=== PATIENT | female | born 1975 | race African-American/Black ===

== ENCOUNTER 2016-10-05 12:29 | Inpatient (IN) | payer BC ==
[~2016-10-05] VITALS: Ht 165.1 cm; Wt 73.4 kg
[~2016-10-05 12:29] MED LIST: AMOXICILLIN 8751 TAB PO; BENADRYL25 M2 PO; CORTIFOAM10% RC; DIFLUCAN150 MG PO; ENTOCORT EC3 MG PO; FLAGYL500 MG PO; HUMIRA40 MG/0.8 MR; LEVAQUIN 5500 MG/TA1 PO; LEVOTHYROXIN0.075 MG PO; MOTRIN 200200 MG/TAB PO; NORCO 325 MG-51 TAB PO; PHENERGAN 25 TA25 MG PO; PHENERGAN25 MG RC; PREDNISONE10 MG PO; PREDNISONE20 MG; PREDNISONE20 MG PO; ROCEPHIN1 GM/50 ML IV; ULTRAM 50MG TAB50 MG PO; VALIUM 5MG T5 MG/TAB PO; ZOFRAN 4MG T4 MG/TAB PO; ZOFRAN ODT4 MG PO
[2016-10-05 13:25] LABS: BASO # 0.1 (0.0-0.2); BASO % 0.7 % (0.0-2.0); EOS # 0.1 (0.0-0.7); EOS % 0.3 % (0-4.0); GRAN # 11.2 (1.4-6.5); GRAN % 75.1 % (42.2-75.2); LYMPH # 2.4 (1.2-3.4); LYMPH % 15.9 % (20.0-51.0); MEAN CELL VOLUME 75 fl (80.0-100.0); MEAN CORPUSCULAR HGB CONC 33 g/dl (33.0-37.0); MONO % 6.8 % (1.7-9.3); PLATELET COUNT 921 K/mm3 (130-400); RED BLOOD COUNT 4.87 M/mm3 (4.10-5.30); REDCELL DISTRIBUTION WIDTH-CV 19.5 % (11.5-14.5); WHITE BLOOD COUNT 14.9 K/mm3 (4.8-10.8)
[2016-10-05 13:26] LABS: HEMATOCRIT 36.5 % (37.0-47.0); HEMOGLOBIN 11.9 g/dl (12.5-16.0); MEAN CORPUSCULAR HEMOGLOBIN 24 pg (27.0-31.0)
[2016-10-05 13:28] LABS: GRANULAR CAST >12 /lpf; PH 5 (5-8); URINE APPEARANCE Cloudy; URINE BACTERIA Rare /hpf; URINE BILIRUBIN Negative (NEGATIVE); URINE BLOOD 3+ (NEGATIVE); URINE COLOR Amber; URINE GLUCOSE Negative (NEGATIVE); URINE KETONE Trace (NEGATIVE); URINE RBC 20-50 /hpf; URINE UROBILINOGEN Negative (NEGATIVE); URINE WBC >50 /hpf
[2016-10-05 13:36] LABS: ADJUSTED CALCIUM 9.8 mg/dL (8.4-10.2); ALBUMIN 3.6 gm/dL (3.5-5.0); BILIRUBIN,TOTAL 0.7 mg/dL (0.0-1.0); C-REACTIVE PROTEIN 6.9 mg/dL (0.0-0.9); CALCIUM 9.5 mg/dL (8.4-10.2); CREATININE, serum 2.85 mg/dL (0.52-1.25); POTASSIUM 3.7 mmol/L (3.4-5.0); TOTAL PROTEIN 9.5 gm/dL (6.4-8.2)
[2016-10-05 15:39] LABS: ERYTHROCYTE SEDIMENTATION RATE 63 mm/hr (0-20)
[2016-10-05] MEDS ORDERED: VITAMIN D1000 IU PO (17:04)
[2016-10-05 17:20] VITALS: BP 102/70; PULSE 65; TEMP 97.3
[2016-10-05 17:21] LABS: HEMOGLOBIN 9.5 g/dl (12.5-16.0)
[2016-10-05 17:22] LABS: HEMATOCRIT 29.3 % (37.0-47.0)
[2016-10-05 17:59] VITALS: BP 118/85; PULSE 76; TEMP 97.5
[2016-10-05 20:17] VITALS: BP 113/71; PULSE 82; TEMP 97.3
[2016-10-05 22:31] LABS: HEMOGLOBIN 8.9 g/dl (12.5-16.0)
[2016-10-06] VITALS (7 sets, daily range): BP systolic 97–118; BP diastolic 60–76; PULSE 60–81; TEMP 97.3–98.8
[2016-10-06 06:41] LABS: BASO % 0.3 % (0.0-2.0); GRAN # 6.5 (1.4-6.5); LYMPH # 0.9 (1.2-3.4); LYMPH % 11.4 % (20.0-51.0); MEAN CELL VOLUME 76 fl (80.0-100.0); MEAN CORPUSCULAR HGB CONC 32 g/dl (33.0-37.0); MEAN PLATELET VOLUME 9.1 fl (7.4-10.4); MONO # 0.1 (0.1-0.6); MONO % 1.2 % (1.7-9.3); RED BLOOD COUNT 3.68 M/mm3 (4.10-5.30); REDCELL DISTRIBUTION WIDTH-CV 19.4 % (11.5-14.5); WHITE BLOOD COUNT 7.5 K/mm3 (4.8-10.8)
[2016-10-06 06:45] LABS: CALCIUM 7.9 mg/dL (8.4-10.2); CREATININE, serum 1.13 mg/dL (0.52-1.25); POTASSIUM 4.1 mmol/L (3.4-5.0)
[2016-10-06 06:48] LABS: HEMATOCRIT 28.1 % (37.0-47.0); MEAN CORPUSCULAR HEMOGLOBIN 24 pg (27.0-31.0); PLATELET COUNT 607 K/mm3 (130-400)
[2016-10-07 03:56] VITALS: BP 106/70; PULSE 64; TEMP 97.6
[2016-10-07 08:12] LABS: BASO % 0.3 % (0.0-2.0); GRAN % 78.4 % (42.2-75.2); LYMPH # 1.3 (1.2-3.4); LYMPH % 11.1 % (20.0-51.0); MEAN CELL VOLUME 78 fl (80.0-100.0); MEAN CORPUSCULAR HGB CONC 32 g/dl (33.0-37.0); MEAN PLATELET VOLUME 9.6 fl (7.4-10.4); MONO # 0.9 (0.1-0.6); MONO % 7.7 % (1.7-9.3); PLATELET COUNT 519 K/mm3 (130-400); RED BLOOD COUNT 3.09 M/mm3 (4.10-5.30); REDCELL DISTRIBUTION WIDTH-CV 19.6 % (11.5-14.5); WHITE BLOOD COUNT 11.4 K/mm3 (4.8-10.8)
[2016-10-07 08:16] LABS: HEMOGLOBIN 7.7 g/dl (12.5-16.0); MEAN CORPUSCULAR HEMOGLOBIN 25 pg (27.0-31.0)
[2016-10-07 08:38] LABS: CALCIUM 7.8 mg/dL (8.4-10.2); CREATININE, serum 0.75 mg/dL (0.52-1.25)
[2016-10-07] MEDS ORDERED: PREDNISONE20 MG PO (09:26)
[2016-10-07 09:37] VITALS: BP 115/68; PULSE 65; TEMP 98.4
== END 2016-10-07 10:18 | disposition home or self-care (01) | DRG 386 ==
LOC: COL.ER 12:29 → MEDICAL 15:24
PROVIDERS: Internal Medicine; Nurse Practitioner; Nurse Practitioner Family
DX: K51.911 Ulcerative colitis, unspecified with rectal bleeding (principal); K83.0 Cholangitis; N17.9 Acute kidney failure, unspecified; E87.1 Hypo-osmolality and hyponatremia; D62 Acute posthemorrhagic anemia; E86.0 Dehydration; D50.0 Iron deficiency anemia secondary to blood loss (chronic)
CPT/HCPCS: 99223-AI; 99232-AI; 99239; J0696; J2270; J2550; J2930; J7030; J7512

== ENCOUNTER → 2016-10-14 | Outpatient (CLI) | payer BC ==
[~2016-10-14] MED LIST changes: +BUMEX 1MG TA1 MG/TA1 PO; +ENTYVIO IV; +MACROBID 1100 MG/CAP PO; +SYNTHROID0.05 MG/TA PO; +VITAMIN D1000 IU PO
== END ==
LOC: COL.LAB 09:03
PROVIDERS: Internal Medicine Gastroenterology
DX: K51.911 Ulcerative colitis, unspecified with rectal bleeding (principal)

== ENCOUNTER 2016-11-03 13:12 | Outpatient (RCR) | payer BC ==
[~2016-11-03] VITALS: Ht 165.1 cm; Wt 79.5 kg
[~2016-11-03 13:12] MED LIST changes: -BUMEX 1MG TA1 MG/TA1 PO; -ENTYVIO IV; -MACROBID 1100 MG/CAP PO; -SYNTHROID0.05 MG/TA PO
[2016-11-03] MEDS ORDERED: LEVAQUIN 5500 MG/TA1 PO (13:25)
[2016-11-03] MEDS ORDERED: BUMEX 1MG TA1 MG/TA1 PO (13:26)
[2016-11-03 13:27] VITALS: BP 135/76; PULSE 120; TEMP 98
[2016-11-06 13:36] VITALS: BP 140/87; PULSE 111; TEMP 98.3
[2016-11-10 15:34] VITALS: BP 119/78; PULSE 103; TEMP 98.5
[2016-11-10 16:45] VITALS: BP 116/7; PULSE 99; TEMP 98.3
[2016-11-13 14:07] VITALS: BP 116/72; PULSE 96; TEMP 98.2
== END 2016-11-13 15:59 | disposition home or self-care (01) ==
LOC: EUO 13:12
DX: D50.8 Other iron deficiency anemias (principal); K51.80 Other ulcerative colitis without complications
CPT/HCPCS: J2916

== ENCOUNTER 2017-05-10 14:55 | Inpatient (IN) | payer SELFPAY ==
[~2017-05-10] VITALS: Ht 162.6 cm; Wt 78.7 kg
[~2017-05-10 14:55] MED LIST changes: +BUMEX 1MG TA1 MG/TA1 PO
[2017-05-10] MEDS ORDERED: ENTYVIO IV (15:17)
[2017-05-10 15:57] LABS: HEMOGLOBIN 7.5 g/dl (12.5-16.0); MEAN CELL VOLUME 60 fl (80.0-100.0); MEAN CORPUSCULAR HEMOGLOBIN 18 pg (27.0-31.0); MEAN CORPUSCULAR HGB CONC 29 g/dl (33.0-37.0); MEAN PLATELET VOLUME 9.4 fl (7.4-10.4); PLATELET COUNT 898 K/mm3 (130-400); RED BLOOD COUNT 4.26 M/mm3 (4.10-5.30); WHITE BLOOD COUNT 16.9 K/mm3 (4.8-10.8)
[2017-05-10 15:58] LABS: ADD PATHOLOGY DIFF REVIEW NO; HEMATOCRIT 25.6 % (37.0-47.0)
[2017-05-10 16:12] LABS: ADJUSTED CALCIUM 9.6 mg/dL (8.4-10.2); ALANINE AMINOTRANSFERASE 37 U/L (9-52); ALBUMIN 4.1 gm/dL (3.5-5.0); ALKALINE PHOSPHATASE 580 U/L (50-136); ANION GAP 16 mmol/L (7-16); BILIRUBIN,TOTAL 0.8 mg/dL (0.0-1.0); BLOOD UREA NITROGEN 30 mg/dL (7-17); CALCIUM 9.7 mg/dL (8.4-10.2); CARBON DIOXIDE 15 mmol/L (22-30); CHLORIDE 94 mmol/L (98-107); CREATININE, serum 1.69 mg/dL (0.52-1.25); GLUCOSE 125 mg/dL (74-106); PHOSPHOROUS 4.6 mg/dL (2.5-4.5); POTASSIUM 3.3 mmol/L (3.4-5.0); SODIUM 125 mmol/L (137-145); TOTAL PROTEIN 9.4 gm/dL (6.4-8.2)
[2017-05-10 16:16] LABS: BAND 3 % (0-10); EOSINOPHIL 1 % (0-4); METAMYELOCYTE 2 % (0-0); NEUTROPHILS 81 % (42.0-75.2); TOTAL CELLS COUNTED 100
[2017-05-10 16:17] LABS: HYPOCHROMIA 2+; PLATELET ESTIMATE INCREASED (NORMAL); POIKILOCYTOSIS 1+
[2017-05-10 16:27] LABS: TROPONIN-I < 0.012 ng/mL (0.000-0.034)
[2017-05-10 16:40] LABS: HYALINE CAST >12 /lpf; PH 6 (5-8); URINE APPEARANCE Cloudy; URINE BACTERIA Rare /hpf; URINE BILIRUBIN Negative (NEGATIVE); URINE BLOOD Negative (NEGATIVE); URINE COLOR Amber; URINE GLUCOSE Negative (NEGATIVE); URINE KETONE Negative (NEGATIVE); URINE UROBILINOGEN Negative (NEGATIVE)
[2017-05-10 21:58] VITALS: BP 119/62; PULSE 104; TEMP 97.6
[2017-05-11] VITALS (18 sets, daily range): BP systolic 91–128; BP diastolic 53–73; PULSE 80–99; TEMP 97.2–98.4
[2017-05-11 08:08] LABS: MEAN CELL VOLUME 61 fl (80.0-100.0); MEAN CORPUSCULAR HGB CONC 29 g/dl (33.0-37.0); MEAN PLATELET VOLUME 10.2 fl (7.4-10.4); RED BLOOD COUNT 3.19 M/mm3 (4.10-5.30); REDCELL DISTRIBUTION WIDTH-CV 19.5 % (11.5-14.5); WHITE BLOOD COUNT 10.7 K/mm3 (4.8-10.8)
[2017-05-11 08:09] LABS: HEMATOCRIT 19.5 % (37.0-47.0); HEMOGLOBIN 5.7 g/dl (12.5-16.0); MEAN CORPUSCULAR HEMOGLOBIN 18 pg (27.0-31.0); PLATELET COUNT 587 K/mm3 (130-400)
[2017-05-11 08:12] LABS: CALCIUM 8.3 mg/dL (8.4-10.2); CREATININE, serum 0.96 mg/dL (0.52-1.25); POTASSIUM 3.9 mmol/L (3.4-5.0)
[2017-05-12 00:22] VITALS: BP 118/62; PULSE 71; TEMP 98.2
[2017-05-12 04:45] VITALS: BP 106/64; PULSE 80; TEMP 97.8
[2017-05-12 05:57] LABS: BASO # 0.1 (0.0-0.2); BASO % 0.5 % (0.0-2.0); EOS # 0.2 (0.0-0.7); EOS % 1.9 % (0-4.0); GRAN % 64.4 % (42.2-75.2); LYMPH # 2.4 (1.2-3.4); LYMPH % 21.7 % (20.0-51.0); MEAN CORPUSCULAR HGB CONC 30 g/dl (33.0-37.0); MEAN PLATELET VOLUME 9.5 fl (7.4-10.4); MONO # 1.2 (0.1-0.6); PLATELET COUNT 544 K/mm3 (130-400); RED BLOOD COUNT 4.34 M/mm3 (4.10-5.30); REDCELL DISTRIBUTION WIDTH-CV 23.4 % (11.5-14.5); WHITE BLOOD COUNT 10.9 K/mm3 (4.8-10.8)
[2017-05-12 05:58] LABS: HEMATOCRIT 29.2 % (37.0-47.0); HEMOGLOBIN 8.7 g/dl (12.5-16.0); MEAN CELL VOLUME 67 fl (80.0-100.0); MEAN CORPUSCULAR HEMOGLOBIN 20 pg (27.0-31.0)
[2017-05-12 06:10] LABS: CALCIUM 8.2 mg/dL (8.4-10.2); CREATININE, serum 0.88 mg/dL (0.52-1.25); POTASSIUM 3.3 mmol/L (3.4-5.0)
[2017-05-12 07:49] VITALS: BP 105/64; PULSE 76; TEMP 97.6
[2017-05-12] MEDS ORDERED: MACROBID 1100 MG/CAP PO (09:04)
[2017-05-12] MEDS ORDERED: SYNTHROID0.05 MG/TA PO (09:04)
== END 2017-05-12 11:50 | disposition home or self-care (01) | DRG 872 ==
LOC: COL.ER 14:55 → MEDICAL 18:23
PROVIDERS: Emergency Medicine; Internal Medicine; Physician Assistant
DX: A41.9 Sepsis, unspecified organism (principal); N39.0 Urinary tract infection, site not specified; E87.1 Hypo-osmolality and hyponatremia; E87.2 Acidosis; N17.9 Acute kidney failure, unspecified; E89.0 Postprocedural hypothyroidism; E87.6 Hypokalemia; D50.9 Iron deficiency anemia, unspecified; D69.6 Thrombocytopenia, unspecified; E86.1 Hypovolemia
CPT/HCPCS: 99223-AI; 99233-AI; 99239; J0696; J2916; J7030; J7050; P9016

== ENCOUNTER 2017-06-11 10:47 | Observation (INO) | payer SELFPAY ==
[~2017-06-11] VITALS: Ht 162.6 cm; Wt 77.1 kg
[~2017-06-11 10:47] MED LIST changes: +MACROBID 1100 MG/CAP PO; +SYNTHROID0.05 MG/TA PO
[2017-06-11 11:28] LABS: BASO # 0.1 (0.0-0.2); BASO % 0.3 % (0.0-2.0); EOS % 0.1 % (0-4.0); GRAN # 13.6 (1.4-6.5); GRAN % 85.3 % (42.2-75.2); HEMATOCRIT 37.6 % (37.0-47.0); LYMPH # 1.4 (1.2-3.4); LYMPH % 8.8 % (20.0-51.0); MEAN CELL VOLUME 72 fl (80.0-100.0); MEAN CORPUSCULAR HGB CONC 31 g/dl (33.0-37.0); MEAN PLATELET VOLUME 9.9 fl (7.4-10.4); MONO # 0.8 (0.1-0.6); PLATELET COUNT 872 K/mm3 (130-400); RED BLOOD COUNT 5.21 M/mm3 (4.10-5.30); REDCELL DISTRIBUTION WIDTH-CV 28.6 % (11.5-14.5)
[2017-06-11 11:34] LABS: HEMOGLOBIN 11.7 g/dl (12.5-16.0); MEAN CORPUSCULAR HEMOGLOBIN 22 pg (27.0-31.0)
[2017-06-11 11:47] LABS: ADJUSTED CALCIUM 9.5 mg/dL (8.4-10.2); ALBUMIN 4.6 gm/dL (3.5-5.0); BILIRUBIN,TOTAL 1.1 mg/dL (0.0-1.0); C-REACTIVE PROTEIN 1.5 mg/dL (0.0-0.9); CREATININE, serum 3.41 mg/dL (0.52-1.25); MAGNESIUM 2.1 mg/dL (1.6-2.3); PHOSPHOROUS 7.6 mg/dL (2.5-4.5); POTASSIUM 3.8 mmol/L (3.4-5.0); TOTAL PROTEIN 10.7 gm/dL (6.4-8.2)
[2017-06-11 12:14] LABS: THYROID STIMULATING HORMONE 0.587 uIU/mL (0.465-4.680)
[2017-06-11 13:13] LABS: HYALINE CAST >12 /lpf; PH 5 (5-8); SQUAMOUS EPITHELIAL 20-50 /hpf; URINE APPEARANCE Cloudy; URINE BACTERIA Rare /hpf; URINE BILIRUBIN Negative (NEGATIVE); URINE BLOOD Negative (NEGATIVE); URINE COLOR Amber; URINE GLUCOSE Negative (NEGATIVE); URINE KETONE Trace (NEGATIVE); URINE RBC 20-50 /hpf
[2017-06-11 13:14] LABS: URINE WBC 20-50 /hpf
[2017-06-11 14:07] LABS: HYALINE CAST >12 /lpf; PH 5 (5-8); SQUAMOUS EPITHELIAL 0-2 /hpf; URINE APPEARANCE Cloudy; URINE BACTERIA Rare /hpf; URINE BILIRUBIN Negative (NEGATIVE); URINE BLOOD Negative (NEGATIVE); URINE COLOR Amber; URINE GLUCOSE Negative (NEGATIVE); URINE KETONE Trace (NEGATIVE); URINE UROBILINOGEN Negative (NEGATIVE)
[2017-06-11 15:34] VITALS: BP 123/75; PULSE 103; TEMP 97.9
[2017-06-11] MEDS ORDERED: ENTYVIO IV (15:50)
[2017-06-11] MEDS ORDERED: SYNTHROID0.075 MG/T PO (15:52)
[2017-06-11 19:56] VITALS: BP 120/71; PULSE 101; TEMP 97.6
[2017-06-11 23:55] VITALS: BP 122/80; PULSE 91; TEMP 98.1
[2017-06-12 05:00] VITALS: BP 128/84; PULSE 86; TEMP 97.7
[2017-06-12 05:59] LABS: BASO % 0.1 % (0.0-2.0); GRAN # 5.9 (1.4-6.5); GRAN % 86.2 % (42.2-75.2); LYMPH # 0.8 (1.2-3.4); LYMPH % 12.1 % (20.0-51.0); MEAN CELL VOLUME 74 fl (80.0-100.0); MEAN CORPUSCULAR HGB CONC 30 g/dl (33.0-37.0); MONO # 0.1 (0.1-0.6); RED BLOOD COUNT 3.99 M/mm3 (4.10-5.30); REDCELL DISTRIBUTION WIDTH-CV 28.7 % (11.5-14.5); WHITE BLOOD COUNT 6.9 K/mm3 (4.8-10.8)
[2017-06-12 06:13] LABS: HEMATOCRIT 29.6 % (37.0-47.0); HEMOGLOBIN 8.9 g/dl (12.5-16.0); MEAN CORPUSCULAR HEMOGLOBIN 22 pg (27.0-31.0); PLATELET COUNT 532 K/mm3 (130-400)
[2017-06-12 06:17] LABS: ADJUSTED CALCIUM 9.2 mg/dL (8.4-10.2); ALBUMIN 3.4 gm/dL (3.5-5.0); BILIRUBIN,TOTAL 0.6 mg/dL (0.0-1.0); CALCIUM 8.7 mg/dL (8.4-10.2); CREATININE, serum 1.63 mg/dL (0.52-1.25); POTASSIUM 3.8 mmol/L (3.4-5.0); TOTAL PROTEIN 8.1 gm/dL (6.4-8.2)
[2017-06-12 07:58] VITALS: BP 118/75; PULSE 86; TEMP 97.7
[2017-06-12 11:28] VITALS: BP 124/73; PULSE 102; TEMP 98.2
[2017-06-12] MEDS ORDERED: LEVAQUIN 750MG750 M1 PO (11:44)
[2017-06-12] MEDS ORDERED: PREDNISONE20 MG PO (11:45)
== END 2017-06-12 13:55 | disposition home or self-care (01) ==
LOC: COL.ER 10:47 → MEDICAL 14:56
PROVIDERS: Emergency Medicine; Physician Assistant
DX: N12 Tubulo-interstitial nephritis, not specified as acute or chronic (principal); A41.9 Sepsis, unspecified organism; K51.90 Ulcerative colitis, unspecified, without complications; N17.9 Acute kidney failure, unspecified; E87.1 Hypo-osmolality and hyponatremia; D64.9 Anemia, unspecified; D47.3 Essential (hemorrhagic) thrombocythemia; E03.9 Hypothyroidism, unspecified; Z82.49 Family history of ischemic heart disease and other diseases of the circulatory system
CPT/HCPCS: 99222-AI; 99239; G0378; J0696; J1650; J1956; J2405; J2550; J2920; J3010; J7030

== ENCOUNTER 2017-12-24 11:37 | Outpatient (RCR) | payer BC ==
[2017-12-24] VITALS (9 sets, daily range): BP systolic 114–154; BP diastolic 70–84; PULSE 75–100; TEMP 97–98.9
[~2017-12-24] VITALS: Ht 162.6 cm; Wt 81.0 kg
[~2017-12-24 11:37] MED LIST changes: +ENTYVIO IV; +LEVAQUIN 750MG750 M1 PO; +SYNTHROID0.075 MG/T PO
[2017-12-24] MEDS ORDERED: ENTOCORT EC3 MG PO (12:09)
[2017-12-24] MEDS ORDERED: NATURE'S BLEND600 M2 PO (12:11)
[2017-12-24] MEDS ORDERED: TURMERIC500 MG PO (12:12)
== END 2017-12-24 18:00 | disposition home or self-care (01) ==
LOC: EUO 11:37
DX: K51.90 Ulcerative colitis, unspecified, without complications (principal)
CPT/HCPCS: J7050; P9016

== ENCOUNTER 2018-01-28 09:22 | Outpatient (RCR) | payer BC ==
[~2018-01-28 09:22] MED LIST changes: +NATURE'S BLEND600 M2 PO; +TURMERIC500 MG PO
[2018-01-28 11:10] VITALS: BP 131/89; PULSE 102; TEMP 99.2
[2018-01-28 11:25] VITALS: BP 120/80; PULSE 110; TEMP 98.2
[2018-01-28 12:00] VITALS: BP 120/89; PULSE 100
[2018-01-28 12:58] VITALS: BP 129/80; PULSE 96; TEMP 98.6
== END 2018-01-28 13:00 | disposition home or self-care (01) ==
LOC: EUO 09:22
DX: K51.919 Ulcerative colitis, unspecified with unspecified complications (principal); D64.9 Anemia, unspecified
CPT/HCPCS: J7050; P9016

== ENCOUNTER 2018-06-06 15:09 | Inpatient (IN) | payer BC ==
[~2018-06-06] VITALS: Ht 162.6 cm; Wt 82.3 kg
[2018-06-06] MEDS ORDERED: NATURE'S BLE1000 MCG (16:00)
[2018-06-06] MEDS ORDERED: GINGER500 MG PO (16:00)
[2018-06-06] MEDS ORDERED: B COMPLEX & B121 TAB (16:01)
[2018-06-06] MEDS ORDERED: VITAMIN D 50,1.25 MG PO (16:02)
[2018-06-06] MEDS ORDERED: KLOR-CON SPRINK8 MEQ PO (16:02)
[2018-06-06] MEDS ORDERED: LASIX 20MG TABL20 MG PO (16:03)
[2018-06-06] MEDS ORDERED: UCERIS (16:04)
[2018-06-06 16:09] VITALS: BP 124/76; PULSE 95; TEMP 98.4
[2018-06-06 16:56] LABS: C-REACTIVE PROTEIN 5.3 mg/dL (0.0-0.9)
[2018-06-06 17:24] LABS: TSH w REFLEX 0.448 uIU/mL (0.465-4.680)
[2018-06-06 21:45] VITALS: BP 125/76; PULSE 88; TEMP 98.2
[2018-06-07] VITALS (12 sets, daily range): BP systolic 106–133; BP diastolic 61–77; PULSE 79–101; TEMP 97.7–98.7
[2018-06-07 06:22] LABS: BASO % 0.4 % (0.0-2.0); GRAN # 4.1 (1.4-6.5); GRAN % 76.2 % (42.2-75.2); LYMPH # 1.1 (1.2-3.4); LYMPH % 20.6 % (20.0-51.0); MEAN CELL VOLUME 68 fl (80.0-100.0); MEAN CORPUSCULAR HGB CONC 27 g/dl (33.0-37.0); MEAN PLATELET VOLUME 9.6 fl (7.4-10.4); MONO # 0.1 (0.1-0.6); MONO % 1.7 % (1.7-9.3); PLATELET COUNT 538 K/mm3 (130-400); RED BLOOD COUNT 3.45 M/mm3 (4.10-5.30); REDCELL DISTRIBUTION WIDTH-CV 25.2 % (11.5-14.5)
[2018-06-07 06:30] LABS: HEMATOCRIT 23.4 % (37.0-47.0); HEMOGLOBIN 6.2 g/dl (12.5-16.0); MEAN CORPUSCULAR HEMOGLOBIN 18 pg (27.0-31.0)
[2018-06-07 06:32] LABS: CALCIUM 7.4 mg/dL (8.4-10.2); CREATININE, serum 0.59 mg/dL (0.52-1.25); POTASSIUM 3.6 mmol/L (3.4-5.0)
[2018-06-07 07:38] LABS: ALBUMIN 2.7 gm/dL (3.5-5.0); BILIRUBIN,DIRECT 0.2 mg/dL (0.0-0.4); BILIRUBIN,TOTAL 0.2 mg/dL (0.0-1.0); TOTAL PROTEIN 6.7 gm/dL (6.4-8.2)
[2018-06-07 18:19] LABS: BASO % 0.3 % (0.0-2.0); GRAN # 8.3 (1.4-6.5); GRAN % 76.2 % (42.2-75.2); HEMATOCRIT 26.6 % (37.0-47.0); HEMOGLOBIN 7.5 g/dl (12.5-16.0); LYMPH # 1.6 (1.2-3.4); LYMPH % 14.4 % (20.0-51.0); MEAN CELL VOLUME 70 fl (80.0-100.0); MEAN CORPUSCULAR HEMOGLOBIN 20 pg (27.0-31.0); MEAN CORPUSCULAR HGB CONC 28 g/dl (33.0-37.0); MEAN PLATELET VOLUME 9.3 fl (7.4-10.4); MONO # 0.8 (0.1-0.6); MONO % 7.6 % (1.7-9.3); PLATELET COUNT 563 K/mm3 (130-400); REDCELL DISTRIBUTION WIDTH-CV 26.9 % (11.5-14.5)
[2018-06-08 04:00] VITALS: BP 126/72; PULSE 73; TEMP 98.1
[2018-06-08 06:46] LABS: MEAN CELL VOLUME 73 fl (80.0-100.0); MEAN CORPUSCULAR HGB CONC 28 g/dl (33.0-37.0); RED BLOOD COUNT 4.03 M/mm3 (4.10-5.30)
[2018-06-08 06:50] LABS: HEMATOCRIT 29.4 % (37.0-47.0); HEMOGLOBIN 8.1 g/dl (12.5-16.0); MEAN CORPUSCULAR HEMOGLOBIN 20 pg (27.0-31.0)
[2018-06-08 06:51] LABS: PLATELET COUNT 690 K/mm3 (130-400)
[2018-06-08 06:55] LABS: CALCIUM 8.1 mg/dL (8.4-10.2); CREATININE, serum 0.72 mg/dL (0.52-1.25); POTASSIUM 3.6 mmol/L (3.4-5.0)
[2018-06-08 07:11] LABS: BAND 47 % (0-10); LYMPHOCYTE 11 % (20.0-51.0); METAMYELOCYTE 1 % (0-0); NEUTROPHILS 40 % (42.0-75.2); PLATELET ESTIMATE INCREASED (NORMAL)
[2018-06-08 07:12] LABS: ANISOCYTOSIS 3+; HYPOCHROMIA 3+; MICROCYTOSIS 1+
[2018-06-08 07:13] LABS: POLYCHROMASIA 1+
[2018-06-08 08:00] VITALS: BP 115/71; PULSE 72; TEMP 97.9
[2018-06-08] MEDS ORDERED: PREDNISONE10 MG PO (09:21)
[2018-06-08 11:41] VITALS: BP 132/77; PULSE 82; TEMP 98.1
== END 2018-06-08 12:37 | disposition home or self-care (01) | DRG 386 ==
LOC: MEDICAL 15:09
PROVIDERS: Hospitalist; Nurse Practitioner Family
DX: K51.911 Ulcerative colitis, unspecified with rectal bleeding (principal); K83.0 Cholangitis; D62 Acute posthemorrhagic anemia; D50.0 Iron deficiency anemia secondary to blood loss (chronic); E05.00 Thyrotoxicosis with diffuse goiter without thyrotoxic crisis or storm
CPT/HCPCS: OP; 99232-AI; 99239; G0378; G0379; J2920; J7030; P9016

== ENCOUNTER 2018-06-30 03:25 | Emergency (ER) | payer BC ==
[~2018-06-30] VITALS: Ht 162.6 cm; Wt 79.5 kg
[~2018-06-30 03:25] MED LIST changes: +B COMPLEX & B121 TAB; +GINGER500 MG PO; +KLOR-CON SPRINK8 MEQ PO; +LASIX 20MG TABL20 MG PO; +NATURE'S BLE1000 MCG; +UCERIS; +VITAMIN D 50,1.25 MG PO
[2018-06-30 03:32] VITALS: BP 111/75; TEMP 97.4
[2018-06-30 03:57] LABS: BASO # 0.1 (0.0-0.2); BASO % 0.4 % (0.0-2.0); EOS # 0.2 (0.0-0.7); EOS % 1.3 % (0-4.0); GRAN # 8.5 (1.4-6.5); GRAN % 71.5 % (42.2-75.2); HEMOGLOBIN 11.1 g/dl (12.5-16.0); LYMPH # 2.4 (1.2-3.4); LYMPH % 20.2 % (20.0-51.0); MEAN CELL VOLUME 74 fl (80.0-100.0); MEAN CORPUSCULAR HEMOGLOBIN 23 pg (27.0-31.0); MEAN CORPUSCULAR HGB CONC 31 g/dl (33.0-37.0); MEAN PLATELET VOLUME 8.6 fl (7.4-10.4); MONO # 0.7 (0.1-0.6); MONO % 5.8 % (1.7-9.3); PLATELET COUNT 815 K/mm3 (130-400); RED BLOOD COUNT 4.85 M/mm3 (4.10-5.30); REDCELL DISTRIBUTION WIDTH-CV 31.4 % (11.5-14.5)
[2018-06-30 03:58] LABS: HEMATOCRIT 36.1 % (37.0-47.0)
[2018-06-30 04:02] LABS: COLLECTION METHOD CLEAN CATCH
[2018-06-30 04:09] LABS: ALBUMIN 3.3 gm/dL (3.5-5.0); BILIRUBIN,TOTAL 0.4 mg/dL (0.0-1.0); C-REACTIVE PROTEIN 3.2 mg/dL (0.0-0.9); CALCIUM 8.5 mg/dL (8.4-10.2); CREATININE, serum 1.28 mg/dL (0.52-1.25); POTASSIUM 3.9 mmol/L (3.4-5.0); TOTAL PROTEIN 7.7 gm/dL (6.4-8.2)
[2018-06-30 04:16] LABS: HYALINE CAST >12 /lpf; MUCOUS Present /lpf; PH 5 (5-8); SQUAMOUS EPITHELIAL 0-2 /hpf; URINE APPEARANCE Hazy; URINE BACTERIA Rare /hpf; URINE BILIRUBIN Positive (NEGATIVE); URINE BLOOD 2+ (NEGATIVE); URINE COLOR Amber; URINE GLUCOSE Negative (NEGATIVE); URINE KETONE Trace (NEGATIVE); URINE LEUKOCYTE ESTERASE Negative (NEGATIVE); URINE NITRATE Negative (NEGATIVE); URINE PROTEIN(semi-quant) 2+ (NEGATIVE)
[2018-06-30] MEDS ORDERED: ZOFRAN 4MG T4 MG/TAB PO (06:43)
[2018-06-30] MEDS ORDERED: PHENERGAN 25 TA25 MG PO (06:43)
[2018-06-30 07:26] VITALS: PULSE 95
== END 2018-06-30 07:26 | disposition home or self-care (01) ==
LOC: COL.ER 03:25
PROVIDERS: Emergency Medicine
DX: R10.12 Left upper quadrant pain (principal); D47.3 Essential (hemorrhagic) thrombocythemia
CPT/HCPCS: J0780; J1170; J7030

== ENCOUNTER 2019-01-30 15:07 | Inpatient (IN) | payer BC ==
[~2019-01-30] VITALS: Ht 162.6 cm; Wt 72.7 kg
[2019-01-30] MEDS ORDERED: REGLAN 10MG10 MG/TAB PO (15:51)
[2019-01-30 16:31] LABS: BASO # 0.1 (0.0-0.2); BASO % 0.5 % (0.0-2.0); EOS # 0.1 (0.0-0.7); EOS % 0.7 % (0-4.0); GRAN # 13.1 (1.4-6.5); GRAN % 79.4 % (42.2-75.2); LYMPH # 1.8 (1.2-3.4); LYMPH % 10.9 % (20.0-51.0); MEAN CELL VOLUME 63 fl (80.0-100.0); MEAN CORPUSCULAR HGB CONC 30 g/dl (33.0-37.0); MEAN PLATELET VOLUME 9.8 fl (7.4-10.4); MONO # 1.3 (0.1-0.6); PLATELET COUNT 717 K/mm3 (130-400); RED BLOOD COUNT 4.65 M/mm3 (4.10-5.30)
[2019-01-30 16:43] LABS: HEMATOCRIT 29.5 % (37.0-47.0); HEMOGLOBIN 8.7 g/dl (12.5-16.0); MEAN CORPUSCULAR HEMOGLOBIN 19 pg (27.0-31.0)
[2019-01-30 16:45] LABS: ALBUMIN 4.6 gm/dL (3.5-5.0); BILIRUBIN,TOTAL 0.7 mg/dL (0.0-1.0); C-REACTIVE PROTEIN 0.9 mg/dL (0.0-0.9); CALCIUM 10.1 mg/dL (8.4-10.2); CREATININE, serum 3.08 (0.52-1.25); POTASSIUM 3.4 mmol/L (3.4-5.0); TOTAL PROTEIN 10.3 gm/dL (6.4-8.2)
[2019-01-30 17:59] LABS: COLLECTION METHOD CLEAN CATCH
[2019-01-30 18:05] LABS: MUCOUS Present /lpf; PH 5 (5-8); SQUAMOUS EPITHELIAL 0-2 /hpf; URINE APPEARANCE Hazy; URINE BACTERIA None Seen /hpf; URINE BILIRUBIN Negative (NEGATIVE); URINE BLOOD Negative (NEGATIVE); URINE COLOR Yellow; URINE GLUCOSE Negative (NEGATIVE); URINE KETONE Negative (NEGATIVE); URINE LEUKOCYTE ESTERASE Trace (NEGATIVE); URINE NITRATE Negative (NEGATIVE); URINE PROTEIN(semi-quant) Negative (NEGATIVE); URINE RBC 0-2 /hpf; URINE UROBILINOGEN Negative (NEGATIVE)
[2019-01-30 20:36] VITALS: BP 125/62; PULSE 89; TEMP 97.7
[2019-01-30] MEDS ORDERED: LASIX 20MG TABL20 MG PO (22:27)
[2019-01-30] MEDS ORDERED: KLOR-CON M2020 MEQ PO (22:27)
[2019-01-30] MEDS ORDERED: PREDNISONE20 MG PO (22:29)
[2019-01-30] MEDS ORDERED: ERGOCALCIFER50000 IU PO (22:30)
[2019-01-30 23:30] VITALS: BP 108/66; PULSE 88; TEMP 97.8
[2019-01-31] VITALS (8 sets, daily range): BP systolic 87–111; BP diastolic 50–69; PULSE 84–102; TEMP 97.9–98.3
[2019-01-31 00:11] LABS: URIC ACID 13.1 mg/dL (2.5-6.2)
--- NOTE | 2019-01-31 01:15 | NUR ---
HR 145 per monitor room. Patient ambulating to BR. Will continue to monitor.
--- NOTE | 2019-01-31 01:25 | NUR ---
HR 113, patient resting in bed. Will continue to monitor.
--- NOTE | 2019-01-31 04:24 | NUR ---
Patient in bed, awake. BP 89/58. Asymptomatic. Will continue to monitor.
--- NOTE | 2019-01-31 05:27 | NUR ---
Patient ambulated to with assist x1. Patient stated, she felt pretty dizzy. Had a large, loose, blood-tinged/brown BM. Patient stated, "that happens sometimes with my ulcerative colitis." Labs drawn per worm farm laborer. Will monitor for CBC results. Denies pain. BP improved. Will continue to monitor.
[2019-01-31 06:06] LABS: MEAN CELL VOLUME 65 fl (80.0-100.0); MEAN CORPUSCULAR HGB CONC 29 g/dl (33.0-37.0); MEAN PLATELET VOLUME 9.7 fl (7.4-10.4); PLATELET COUNT 619 K/mm3 (130-400); RED BLOOD COUNT 3.93 M/mm3 (4.10-5.30); REDCELL DISTRIBUTION WIDTH-CV 22.8 % (11.5-14.5)
[2019-01-31 06:08] LABS: HEMATOCRIT 25.4 % (37.0-47.0); HEMOGLOBIN 7.4 g/dl (12.5-16.0); MEAN CORPUSCULAR HEMOGLOBIN 19 pg (27.0-31.0)
--- NOTE | 2019-01-31 06:23 | NUR ---
Notified Dr. Daniels of hgb 7.4 (down from 8.7), and BP 89/58. Stated, he will address concerns when he rounds this morning.
[2019-01-31 06:32] LABS: ALBUMIN 3.9 gm/dL (3.5-5.0); CALCIUM 9.1 mg/dL (8.4-10.2); CREATININE, serum 2.3 (0.52-1.25); PHOSPHOROUS 5.3 mg/dL (2.5-4.5)
[2019-01-31 06:45] LABS: BAND 2 % (0-10); BASOPHIL 1 % (0-2); LYMPHOCYTE 28 % (20.0-51.0); NEUTROPHILS 62 % (42.0-75.2); PLATELET ESTIMATE INCREASED (NORMAL)
[2019-01-31 06:46] LABS: HYPOCHROMIA 1+; MICROCYTOSIS 1+
[2019-01-31 07:15] LABS: SODIUM 129 mmol/L (137-145)
--- NOTE | 2019-01-31 08:05 | NUR ---
Pt assessment complete. Pt is sitting up in bed upon entry, she is A/O x3. Her breathing is even and unlabored on RA. Pt reports SOB on exertion. No pain at this time. Pt also reports dizziness with ambulation, pt advised to call staff when needing to get up, she verbalizes understanding. Pt reports sore throat this am. No N/V. Awaiting breakfast at this time. Call light within reach. Will continue to monitor.
--- NOTE | 2019-01-31 08:46 | NUR ---
SW met with patient to discuss discharge planning. Patient lives independently at home. Patient's PCP is Dr Elmore and she obtains prescriptions from the [facility] in [place]. Patient does not use any home health services or DME. Patient does not have a DPOA-HC but she would like to take a copy of the DPOA form home. GARETH provided form. SW does not anticipate any discharge needs.
--- NOTE | 2019-01-31 11:08 | NUR ---
Initial visit; Patient thanked Research Psychologist for looking in on her and offering prayer and God's blessings.
[2019-01-31 11:24] LABS: RETIC # 0.1 M/mm3 (0.02-0.16); RETIC % 2.7 % (0.5-3.52)
--- NOTE | 2019-01-31 12:12 | NUR ---
Pt having diarrhea this am after eating. Pt requesting shower, staff to remain with her in the bathroom d/t dizziness and SOB on ambulation. Pt noncompliant with call light when getting up, bed alarm will be implemented.
--- NOTE | 2019-01-31 18:43 | NUR ---
Pt continued to be dizzy and SOB on ambulation. Bed alarm in place. She denies pain. Pt reports some loose stools today, but reports that's her normal. Pt continues to have potassium replacement. Ate meals without N/V. IVF infusing without complications. Call light within reach.
--- NOTE | 2019-01-31 23:46 | NUR ---
Patient assessed around 1999. Denies having any pain or discomfort. Alert and oriented x 4, and able to make needs known. Peripheral IV to left forearm is patent, and site is without redness, warmth, swelling, and pain. NS running at 50 ml/hr per orders. Continues on potassium protocol. Result was 3.3, and given oral potassium per protocol. Will recheck at 0100. LS CTA. Respirations even and unlabored. Denies SOB and dyspnea. Heart rate does increase to 120s when patient is up walking around in room. Denies having dizzyness and lightheadedness. BSAx4. Reports diarrhea due to ulcerative colitis. Denies having any needs or concerns. Resting in bed on computer at this time. Call light is within reach.
[2019-02-01] VITALS (13 sets, daily range): BP systolic 90–118; BP diastolic 46–85; PULSE 86–100; TEMP 97.7–98.6
--- NOTE | 2019-02-01 06:06 | NUR ---
Patient has denied having pain and discomfort this shift. Potassium has been replaced per orders, and potassium scheduled to be rechecked around 0630. Denies having any questsion or concerns at this time. NS continues to run at 50 ml/hr to peripheral IV in left forearm. Call light is within reach.
[2019-02-01 07:01] LABS: MEAN CELL VOLUME 64 fl (80.0-100.0); MEAN CORPUSCULAR HGB CONC 29 g/dl (33.0-37.0); PLATELET COUNT 520 K/mm3 (130-400); RED BLOOD COUNT 3.57 M/mm3 (4.10-5.30); REDCELL DISTRIBUTION WIDTH-CV 22.5 % (11.5-14.5)
[2019-02-01 07:18] LABS: ALBUMIN 3.4 gm/dL (3.5-5.0); CREATININE, serum 1.66 (0.52-1.25); PHOSPHOROUS 3.6 mg/dL (2.5-4.5); POTASSIUM 3.7 mmol/L (3.4-5.0)
[2019-02-01 07:24] LABS: HEMATOCRIT 22.8 % (37.0-47.0); HEMOGLOBIN 6.6 g/dl (12.5-16.0); MEAN CORPUSCULAR HEMOGLOBIN 18 pg (27.0-31.0)
[2019-02-01 07:37] LABS: ANISOCYTOSIS 2+; BAND 2 % (0-10); EOSINOPHIL 1 % (0-4); HYPOCHROMIA 2+; LYMPHOCYTE 18 % (20.0-51.0); NEUTROPHILS 65 % (42.0-75.2); PLATELET ESTIMATE INCREASED (NORMAL)
--- NOTE | 2019-02-01 08:00 | NUR ---
Assessment complete. Pt laying in bed, A&O x 4. Breath sounds CTAB. BS active x 4. Pt denies pain at this time. IVF's infusing per orders through left forearm site without s/s of complications. No further needs reported. Call light in reach.
--- NOTE | 2019-02-01 10:34 | NUR ---
Pt prefers to see her own refueler for scopes after discharging from here. Dr. Daniels and Dr. Mcgowan notified of pt's decision.
--- NOTE | 2019-02-01 11:00 | NUR ---
Pt reports tightness around IV site. Left arm is taut and edematous. Tape loosened and pt reports relief at this time.
--- NOTE | 2019-02-01 14:45 | NUR ---
Second unit of blood transfusion started through IV site to right forearm at 60 ml/hr. This nurse at bedside.
--- NOTE | 2019-02-01 19:18 | NUR ---
Report with SHEELA Ortiz. Pt sitting on side of bed, IV Iron infusion started. Call light in each.
[2019-02-02 03:45] VITALS: BP 91/58; PULSE 80; TEMP 97.8
[2019-02-02 05:05] VITALS: BP 109/62; PULSE 82
[2019-02-02 06:03] LABS: MEAN CORPUSCULAR HGB CONC 31 g/dl (33.0-37.0); MEAN PLATELET VOLUME 9.6 fl (7.4-10.4); PLATELET COUNT 497 K/mm3 (130-400); RED BLOOD COUNT 4.24 M/mm3 (4.10-5.30); REDCELL DISTRIBUTION WIDTH-CV 25.1 % (11.5-14.5)
[2019-02-02 06:06] LABS: HEMOGLOBIN 9.2 g/dl (12.5-16.0); MEAN CELL VOLUME 71 fl (80.0-100.0); MEAN CORPUSCULAR HEMOGLOBIN 22 pg (27.0-31.0)
[2019-02-02 06:13] LABS: ALBUMIN 3.4 gm/dL (3.5-5.0); BAND 10 % (0-10); CALCIUM 8.9 mg/dL (8.4-10.2); CREATININE, serum 1.28 (0.52-1.25); EOSINOPHIL 6 % (0-4); LYMPHOCYTE 23 % (20.0-51.0); NEUTROPHILS 48 % (42.0-75.2); PHOSPHOROUS 3.7 mg/dL (2.5-4.5); PLATELET ESTIMATE INCREASED (NORMAL); POTASSIUM 3.9 mmol/L (3.4-5.0)
[2019-02-02 06:14] LABS: ANISOCYTOSIS 3+; MICROCYTOSIS 2+
[2019-02-02 07:46] VITALS: BP 101/64; PULSE 79; TEMP 97.9
--- NOTE | 2019-02-02 08:34 | NUR ---
Pt resting in bed watching TV, no C/O pain, shift assessments complete, left Pt call light in reach, bed in lowest position.
--- NOTE | 2019-02-02 11:24 | NUR ---
Dr Daniels talked to Pt about his concerns on discharging her without having a colonoscopy performed to check for bleeding, that her hemoglobin levels dropped very quickly and although currently in the safe range that could change very quickly, and voiced his concerns about this issue, her current physician will not be available to schedule a follow up for approximately two weeks.
[2019-02-02 11:34] VITALS: BP 104/66; PULSE 92; TEMP 98.4
--- NOTE | 2019-02-02 15:18 | NUR ---
Pt left AMA, risks were explained to Pt and form signed, Pt signed forms and left at 1510.
== END 2019-02-02 15:19 | disposition left against medical advice (07) | DRG 812 ==
LOC: COL.ER 15:07 → MEDICAL 17:36 → COL.ER 17:36 → MEDICAL 23:00
PROVIDERS: Family Medicine; ADMIT Internal Medicine Nephrology
DX: D50.9 Iron deficiency anemia, unspecified (principal); K51.90 Ulcerative colitis, unspecified, without complications; N17.9 Acute kidney failure, unspecified; K83.01 Primary sclerosing cholangitis; E87.1 Hypo-osmolality and hyponatremia; E87.2 Acidosis; E44.0 Moderate protein-calorie malnutrition; E05.00 Thyrotoxicosis with diffuse goiter without thyrotoxic crisis or storm; K44.9 Diaphragmatic hernia without obstruction or gangrene; E55.9 Vitamin D deficiency, unspecified; R74.8 Abnormal levels of other serum enzymes; Z68.27 Body mass index [BMI] 27.0-27.9, adult
CPT/HCPCS: J2405; J2916; J3475; J7030; P9016

== ENCOUNTER → 2019-11-28 | Outpatient (CLI) | payer BC ==
[~2019-11-28] MED LIST changes: +ERGOCALCIFER50000 IU PO; +KLOR-CON M2020 MEQ PO; +REGLAN 10MG10 MG/TAB PO
[2019-11-28 13:48] LABS: BASO % 0.5 % (0.0-2.0); EOS # 1.1 (0.0-0.7); GRAN % 52.1 % (42.2-75.2); HEMOGLOBIN 10.1 g/dl (12.5-16.0); LYMPH # 1.9 (1.2-3.4); MEAN CELL VOLUME 83 fl (80.0-100.0); MEAN CORPUSCULAR HEMOGLOBIN 25 pg (27.0-31.0); MEAN CORPUSCULAR HGB CONC 30 g/dl (33.0-37.0); MEAN PLATELET VOLUME 9.2 fl (7.4-10.4); MONO # 0.5 (0.1-0.6); PLATELET COUNT 569 K/mm3 (130-400)
[2019-11-28 13:53] LABS: ALBUMIN 3.3 gm/dL (3.5-5.0); BILIRUBIN,TOTAL 0.2 mg/dL (0.0-1.0); CALCIUM 8.5 mg/dL (8.4-10.2); CREATININE, serum 0.71 (0.52-1.25); POTASSIUM 3.9 mmol/L (3.4-5.0); TOTAL PROTEIN 7.6 gm/dL (6.4-8.2)
[2019-11-28 14:03] LABS: INR 1.2 (0.8-3.0); PROTHROMBIN TIME 14.1 SECONDS (9.7-12.8)
[2019-11-28 14:21] LABS: HEMATOCRIT 33.8 % (37.0-47.0)
[2019-11-28 14:22] LABS: RED BLOOD COUNT 4.09 M/mm3 (4.10-5.30)
== END ==
LOC: COL.LAB 12:55
PROVIDERS: Internal Medicine Gastroenterology
DX: C18.9 Malignant neoplasm of colon, unspecified (principal)

== ENCOUNTER → 2019-12-01 | Outpatient (CLI) | payer BC | LOC: COL.RAD 08:27 | DX: C18.9 Malignant neoplasm of colon, unspecified (principal) | CPT/HCPCS: Q9967 ==

== ENCOUNTER 2020-07-11 16:21 | Inpatient (IN) | payer BC ==
[~2020-07-11] VITALS: Ht 165.1 cm; Wt 59.5 kg
[2020-07-11 17:39] LABS: HEMOGLOBIN 10.3 g/dl (12.5-16.0); MEAN CELL VOLUME 84 fl (80.0-100.0); MEAN CORPUSCULAR HEMOGLOBIN 29 pg (27.0-31.0); MEAN CORPUSCULAR HGB CONC 35 g/dl (33.0-37.0); MEAN PLATELET VOLUME 8.4 fl (7.4-10.4); PLATELET COUNT 393 K/mm3 (130-400); RED BLOOD COUNT 3.53 M/mm3 (4.10-5.30); REDCELL DISTRIBUTION WIDTH-CV 15.2 % (11.5-14.5)
[2020-07-11 17:48] LABS: INR 1.3 (0.8-3.0)
[2020-07-11 17:50] LABS: ALANINE AMINOTRANSFERASE 10 U/L (4-34); ALBUMIN 2.9 gm/dL (3.5-5.0); ALKALINE PHOSPHATASE 325 U/L (50-136); ANION GAP 8 mmol/L (7-16); AST,SGOT 19 U/L (15-37); BILIRUBIN,TOTAL 0.3 mg/dL (0.0-1.0); BLOOD UREA NITROGEN 21 mg/dL (7-17); C-REACTIVE PROTEIN 4.9 mg/dL (0.0-0.9); CALCIUM 7.8 mg/dL (8.4-10.2); CHLORIDE 101 mmol/L (98-107); CREATININE, serum 1.07 (0.52-1.25); GLUCOSE 115 mg/dL (74-106); POTASSIUM 3.9 mmol/L (3.4-5.0); SODIUM 123 mmol/L (137-145); TOTAL PROTEIN 6.7 gm/dL (6.4-8.2)
[2020-07-11 17:53] LABS: CARBON DIOXIDE 14 mmol/L (22-30)
[2020-07-11 18:00] LABS: TROPONIN-I < 0.012 ng/mL (0.000-0.035)
[2020-07-11 18:03] LABS: COLLECTION METHOD CLEAN CATCH
[2020-07-11 18:13] LABS: PH 6 (5-8); URINE APPEARANCE Clear; URINE BACTERIA Rare /hpf; URINE BILIRUBIN Negative (NEGATIVE); URINE BLOOD 2+ (NEGATIVE); URINE COLOR Yellow; URINE GLUCOSE Negative (NEGATIVE); URINE KETONE Negative (NEGATIVE); URINE LEUKOCYTE ESTERASE 2+ (NEGATIVE); URINE NITRATE Negative (NEGATIVE); URINE PROTEIN(semi-quant) Negative (NEGATIVE); URINE UROBILINOGEN Negative (NEGATIVE)
[2020-07-11 18:19] LABS: HEMATOCRIT 29.6 % (37.0-47.0)
[2020-07-11 18:38] LABS: BAND 12 % (0-10); LYMPHOCYTE 1 % (20.0-51.0); NEUTROPHILS 87 % (42.0-75.2)
[2020-07-11 18:40] LABS: ANISOCYTOSIS 1+; PLATELET ESTIMATE NORMAL (NORMAL)
[2020-07-11 20:59] VITALS: BP 129/78; PULSE 119; TEMP 97.6
[2020-07-11 22:58] VITALS: BP 108/77; PULSE 101; TEMP 97.8
--- NOTE | 2020-07-11 23:00 | NUR ---
Pt arrrived to medical unit room 308 from ED via stretcher at 2039. Report received from ED RN. Pt oriented to room. Admission assessments and med rec completed. Lungs clear to auscultation, heart rhythm regular, rate slightly elevated between 100-105, bowel sounds audible all quadrants, A&Ox4. Denies pain, nausea, SOA, dizziness, or other concerns at this time. Reports occasional episodes of diarrhea with improvement since arrival in ED. Fluids running to right AC IV. Brought pt sandwich box, water, and sprite. Moves independently in room with ease, gait steady. Denies needs at this time. Call light in reach.
[2020-07-11] MEDS ORDERED: ZOFRAN8 MG PO (23:47)
[2020-07-11] MEDS ORDERED: LOMOTIL 0.025 M1 TAB PO (23:49)
[2020-07-11] MEDS ORDERED: IMODIUM MULTI-S1 TAB PO (23:51)
[2020-07-11] MEDS ORDERED: TYLENOL 500MG500 MG PO (23:52)
[2020-07-11] MEDS ORDERED: NORVASC 5MG5 MG/TAB PO (23:54)
[2020-07-11] MEDS ORDERED: CRANBERRY PO (23:57)
--- NOTE | 2020-07-12 00:45 | NUR ---
Port deaccessed at pt request. Okayed by Jennifer MCDONALD due to peripheral IV access.
[2020-07-12 04:28] VITALS: BP 112/79; PULSE 88; TEMP 98.1
[2020-07-12 06:57] LABS: BASO % 0.3 % (0.0-2.0); GRAN # 2.4 (1.4-6.5); GRAN % 81.1 % (42.2-75.2); LYMPH # 0.2 (1.2-3.4); MEAN CELL VOLUME 85 fl (80.0-100.0); MEAN CORPUSCULAR HGB CONC 34 g/dl (33.0-37.0); MEAN PLATELET VOLUME 9.2 fl (7.4-10.4); MONO # 0.4 (0.1-0.6); MONO % 12.3 % (1.7-9.3); PLATELET COUNT 376 K/mm3 (130-400); RED BLOOD COUNT 3.07 M/mm3 (4.10-5.30); REDCELL DISTRIBUTION WIDTH-CV 15.3 % (11.5-14.5)
[2020-07-12 06:59] LABS: HEMOGLOBIN 8.9 g/dl (12.5-16.0); MEAN CORPUSCULAR HEMOGLOBIN 29 pg (27.0-31.0)
[2020-07-12 07:12] LABS: CALCIUM 7.5 mg/dL (8.4-10.2); CREATININE, serum 1.04 (0.52-1.25); POTASSIUM 3.9 mmol/L (3.4-5.0)
[2020-07-12 07:47] VITALS: BP 100/69; BP 110/69; PULSE 79; TEMP 97.4
--- NOTE | 2020-07-12 08:18 | NUR ---
Pt assessment complete. Pt is laying in bed upon entry, she is A/O x4. Her breathing is even and unlabored on RA. Pt denies SOB. No N/V at this time. Pt reports having to use the restroom Q1h with loose stools. Appetite is okay. Reports N/T to bilateral feet and hands. Reports her skin and groin is irritated from radiation. IVF infusing without complications. Pt denies further needs, call light within reach.
--- NOTE | 2020-07-12 09:49 | NUR ---
GARETH met with the patient to discuss discharge plan. The patient lives in [place] with her 10-year-old daughter. She states that her daughter is staying with her mother, Rosa Isela (ph#[phone]), while she is here. She reports independence with ADLs and does not have any DME. The patient's PCP is Dr. Jaxon Elmore and she receives her medications from the [facility]. She reports no difficulties obtaining her meds. The patient does not have a DPOA-HC, but she was interested in obtaining a form. GARETH provided. The patient states that she would like to complete the form while here, but would like to look it over first. She states that she has four children. They are 27 ([place]), 19, 17 (In [place], staying with his father), and [id number]. The patient plans to return home upon discharge. SW to follow up with the patient for the DPOA-HC.
[2020-07-12 11:22] VITALS: BP 124/81; PULSE 91; TEMP 97.6
[2020-07-12 12:33] LABS: CALCIUM 7.9 mg/dL (8.4-10.2); CREATININE, serum 1.11 (0.52-1.25)
[2020-07-12 16:44] VITALS: BP 110/63; PULSE 86; TEMP 97.7
--- NOTE | 2020-07-12 18:37 | NUR ---
Pt up to the restroom frequently today, continues to have loose stools. Thinks it's due to increase in intake. Zofran relieved any N/V. IVF continue to infuse. Attempted to call patient's father back with patient's permission, no answer. Guest at bedside at this time. Call light within reach.
--- NOTE | 2020-07-12 18:58 | NUR ---
Report received from SHEELA Biswas. Pt resting in bed, visitor at bedside. Denies needs at this time. Will continue to monitor.
[2020-07-12 20:00] VITALS: BP 114/77; PULSE 94; TEMP 97.5
--- NOTE | 2020-07-12 20:10 | NUR ---
Shift assessment complete. Pt sitting up on edge of bed. Reports frequent episodes of diarrhea and soreness to rectum. Lungs clear to auscultation, heart rhythm regular, rate slightly elevated, A&Ox4. NS running at 75 ml/hr. Denies other needs at this time. Will continue to monitor.
[2020-07-12 23:43] VITALS: BP 97/65; PULSE 84; TEMP 97.4
[2020-07-13 03:29] VITALS: BP 109/65; PULSE 94; TEMP 97.6
--- NOTE | 2020-07-13 05:13 | NUR ---
Reports sleeping intermittently throughout night. Refused melatonin due to feelings of grogginess and fear of not making it to toilet in time. Reports frequent loose BMs throughout night that come on suddenly, causing increased pain to rectum. No abnormal findings with neuro checks. Sodium trending up.
[2020-07-13 06:41] LABS: MEAN CELL VOLUME 87 fl (80.0-100.0); MEAN CORPUSCULAR HGB CONC 34 g/dl (33.0-37.0); MEAN PLATELET VOLUME 9.3 fl (7.4-10.4); PLATELET COUNT 421 K/mm3 (130-400); RED BLOOD COUNT 3.27 M/mm3 (4.10-5.30); REDCELL DISTRIBUTION WIDTH-CV 15.7 % (11.5-14.5)
[2020-07-13 06:49] LABS: HEMATOCRIT 28.4 % (37.0-47.0); HEMOGLOBIN 9.6 g/dl (12.5-16.0); MEAN CORPUSCULAR HEMOGLOBIN 29 pg (27.0-31.0)
[2020-07-13 06:52] LABS: CALCIUM 7.6 mg/dL (8.4-10.2); CREATININE, serum 0.96 (0.52-1.25); POTASSIUM 3.2 mmol/L (3.4-5.0)
[2020-07-13 07:48] LABS: BAND 36 % (0-10); EOSINOPHIL 1 % (0-4); LYMPHOCYTE 4 % (20.0-51.0); METAMYELOCYTE 3 % (0-0); MYELOCYTE 6 % (0-0); NEUTROPHILS 47 % (42.0-75.2)
[2020-07-13 07:49] LABS: PLATELET ESTIMATE INCREASED (NORMAL)
[2020-07-13 08:09] VITALS: BP 117/71; PULSE 101; TEMP 97.4
--- NOTE | 2020-07-13 08:38 | NUR ---
Pt assessment complete. Pt is sitting up in bed upon entry, she is A/O x4. Her breathing is even and unlabored on RA. Pt denies SOB. No N/V at this time. Diarrhea more frequent, approximately three times in last hour. Some rectal pain present. Pt provided with barrier cream. Pt reports having frequent yeast infections with previous use in Macrobid, will check with doctor to see about starting antifungal. Pt feels that RUE and ankles are starting to swell, agreed to move IV if she is staying another day. No further needs at this time. Call light within reach.
[2020-07-13 11:20] VITALS: BP 109/66; PULSE 89; TEMP 97.7
[2020-07-13] MEDS ORDERED: MACROBID 1100 MG/CAP PO (11:42)
[2020-07-13] MEDS ORDERED: DIFLUCAN150 MG PO (11:44)
--- NOTE | 2020-07-13 13:55 | NUR ---
Discharge paperwork and instructions reviewed with patient. All questions answered at this time. IV to RAC dc'd catheter tip intact. Pt wheeled out of facility at this time.
[2020-07-15 08:18] LABS: PATHOLOGY DIFF REVIEW OK
== END 2020-07-13 13:55 | disposition home or self-care (01) | DRG 641 ==
LOC: COL.ER 16:21 → MEDICAL 18:12
PROVIDERS: Emergency Medicine; Nurse Practitioner Primary Care; Student in an Organized Health Care Education/Training Program; ADMIT Internal Medicine
DX: E87.1 Hypo-osmolality and hyponatremia (principal); K51.90 Ulcerative colitis, unspecified, without complications; N39.0 Urinary tract infection, site not specified; C19 Malignant neoplasm of rectosigmoid junction; K52.1 Toxic gastroenteritis and colitis; E86.0 Dehydration; D50.9 Iron deficiency anemia, unspecified; E03.9 Hypothyroidism, unspecified; T45.1X5A Adverse effect of antineoplastic and immunosuppressive drugs, initial encounter
CPT/HCPCS: 99222-AI; 99232-AI; 99239; J2405; J7030; J7120

== ENCOUNTER 2020-07-29 15:29 | Inpatient (IN) | payer BC ==
[~2020-07-29] VITALS: Ht 162.6 cm; Wt 61.5 kg
[~2020-07-29 15:29] MED LIST changes: +CRANBERRY PO; +IMODIUM MULTI-S1 TAB PO; +LOMOTIL 0.025 M1 TAB PO; +NORVASC 5MG5 MG/TAB PO; +TYLENOL 500MG500 MG PO; +ZOFRAN8 MG PO
[2020-07-29] MEDS ORDERED: KLOR-CON 1010 MEQ PO (16:41)
[2020-07-29 16:45] LABS: HEMOGLOBIN 11.6 g/dl (12.5-16.0); MEAN CELL VOLUME 85 fl (80.0-100.0); MEAN CORPUSCULAR HEMOGLOBIN 29 pg (27.0-31.0); MEAN CORPUSCULAR HGB CONC 35 g/dl (33.0-37.0); MEAN PLATELET VOLUME 9.6 fl (7.4-10.4); PLATELET COUNT 845 K/mm3 (130-400); RED BLOOD COUNT 3.94 M/mm3 (4.10-5.30); REDCELL DISTRIBUTION WIDTH-CV 16.3 % (11.5-14.5)
[2020-07-29 16:48] LABS: HEMATOCRIT 33.5 % (37.0-47.0)
[2020-07-29 17:00] LABS: ALBUMIN 3.6 gm/dL (3.5-5.0); BILIRUBIN,TOTAL 0.4 mg/dL (0.0-1.0); C-REACTIVE PROTEIN 4.1 mg/dL (0.0-0.9); CALCIUM 8.6 mg/dL (8.4-10.2); POTASSIUM 4.5 mmol/L (3.4-5.0)
[2020-07-29 17:03] LABS: CREATININE, serum 7.06 (0.52-1.25)
[2020-07-29 17:15] LABS: BAND 23 % (0-10); LYMPHOCYTE 1 % (20.0-51.0); NEUTROPHILS 59 % (42.0-75.2); PLATELET ESTIMATE INCREASED (NORMAL)
[2020-07-29 17:16] LABS: ANISOCYTOSIS 3+
[2020-07-29 17:44] LABS: MAGNESIUM 1.3 mg/dL (1.6-2.3)
[2020-07-29 17:46] LABS: PHOSPHOROUS 10.6 mg/dL (2.5-4.5)
[2020-07-29 18:11] LABS: COLLECTION METHOD IN
[2020-07-29 18:30] LABS: BUDDING YEAST Present /hpf; MUCOUS Present /lpf; PH 5 (5-8); SQUAMOUS EPITHELIAL 0-2 /hpf; URINE APPEARANCE Cloudy; URINE BACTERIA Rare /hpf; URINE BILIRUBIN Negative (NEGATIVE); URINE BLOOD Negative (NEGATIVE); URINE COLOR Amber; URINE GLUCOSE Negative (NEGATIVE); URINE KETONE Negative (NEGATIVE); URINE LEUKOCYTE ESTERASE Negative (NEGATIVE); URINE NITRATE Negative (NEGATIVE); URINE PROTEIN(semi-quant) Negative (NEGATIVE); URINE RBC 0-2 /hpf; URINE UROBILINOGEN Negative (NEGATIVE)
[2020-07-29 21:37] LABS: CALCIUM 7.5 mg/dL (8.4-10.2); CREATININE, serum 6.55 (0.52-1.25)
[2020-07-29 22:04] LABS: FRACTIONAL EXCRETION OF NA+ 0.11 %; SODIUM 119 mmol/L (137-145)
--- NOTE | 2020-07-29 22:04 | NUR ---
NIK Moreno notified of critical lab result by this RN. Na+ 119
[2020-07-29 22:05] LABS: OSMOLALITY-SERUM 272 Osm/kg (275-300)
[2020-07-29 22:20] LABS: CLOSTRIDIUM DIFF A/B NEG; CLOSTRIDIUM DIFF A/B INTERP No C.diff present
[2020-07-29 23:19] VITALS: BP 141/78; PULSE 100; TEMP 98.1
[2020-07-29 23:24] VITALS: BP 141/78; PULSE 100; TEMP 98.1
--- NOTE | 2020-07-30 | NUR ---
Pt arrived to the floor via stretcher. Pt was able to ambulate tot he bed. Pt did have a lot of pain in her legs. Pt is currently in bed and has her call light within reach.
[2020-07-30 00:32] LABS: CALCIUM 7.5 mg/dL (8.4-10.2); POTASSIUM 4.1 mmol/L (3.4-5.0)
[2020-07-30 00:37] LABS: CREATININE, serum 5.62 (0.52-1.25)
[2020-07-30] MEDS ORDERED: NORCO 325 MG-51 TAB PO (00:42)
--- NOTE | 2020-07-30 03:46 | NUR ---
Pt had complaints of pain and pt was given pain medication at this time. Pt was assisted to the bedside commode earlier. Pt had quite a bit of pain when we were cleaning her. Pt was ok with us taking a syringe with water to clean her. Pt has a lot of pain due to the radiation burn that she has on her bottom. 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 Pt has her call light within reach.
[2020-07-30 04:27] VITALS: BP 116/75; PULSE 98; TEMP 97.8
[2020-07-30 04:28] LABS: CALCIUM 7.4 mg/dL (8.4-10.2); CREATININE, serum 5.47 (0.52-1.25); POTASSIUM 4.3 mmol/L (3.4-5.0)
[2020-07-30 05:42] LABS: MEAN CELL VOLUME 87 fl (80.0-100.0); MEAN CORPUSCULAR HGB CONC 34 g/dl (33.0-37.0); MEAN PLATELET VOLUME 9.3 fl (7.4-10.4); RED BLOOD COUNT 3.01 M/mm3 (4.10-5.30); REDCELL DISTRIBUTION WIDTH-CV 16.4 % (11.5-14.5)
[2020-07-30 05:48] LABS: HEMATOCRIT 26.2 % (37.0-47.0); HEMOGLOBIN 8.9 g/dl (12.5-16.0); MEAN CORPUSCULAR HEMOGLOBIN 30 pg (27.0-31.0); PLATELET COUNT 495 K/mm3 (130-400)
[2020-07-30 05:50] LABS: MAGNESIUM 1.7 mg/dL (1.6-2.3); PHOSPHOROUS 6.2 mg/dL (2.5-4.5)
[2020-07-30 07:12] VITALS: BP 133/95; PULSE 107; TEMP 98.1
--- NOTE | 2020-07-30 07:17 | NUR ---
While giving report to SHEELA Chiu. Pt stated that her robertson was causing her a lot of pain. Pt stated that she tried to deal with it during the night but now it is becoming to uncomfortable for her. Throught the night pt did get up to the bedside commode a few time. Pt was cleaned using warm paper towels as she requested and we used a large syring to run water over her bottom to make sure that she was clean. Pt has been emotional throught the night and stated that this is very different for her not to be able to care for herself. Pt has her call light [employer] and I have reported off to SHEELA Chiu.
[2020-07-30 07:38] LABS: BAND 61 % (0-10); LYMPHOCYTE 4 % (20.0-51.0); NEUTROPHILS 30 % (42.0-75.2); PLATELET ESTIMATE INCREASED (NORMAL)
[2020-07-30 07:39] LABS: ANISOCYTOSIS 1+; HYPOCHROMIA 1+
--- NOTE | 2020-07-30 08:27 | NUR ---
NIK ROJAS CALLED AND NOTIFIED THAT THE PATIENTS JUAREZ CATHETER IS CAUSING HER ALOT OF DISCOMFORT AND SHE WANTS TO LEAVE IF SHE CANNOT HAVE IT REMOVED. THE PATIENT ALSO REPORTS THAT THE IV DILAUDID IS NOT CONTROLLING HER PAIN AT ALL. PHYSICIANS ARE ABOUT TO ROUND. WILL WAIT FOR ORDERS.
[2020-07-30 09:15] LABS: CALCIUM 7.8 mg/dL (8.4-10.2); CREATININE, serum 5.01 (0.52-1.25); POTASSIUM 4.1 mmol/L (3.4-5.0)
--- NOTE | 2020-07-30 10:02 | NUR ---
Initial visit; Patient thanked Stamping Operator for her availability and helping with her health needs. Stamping Operator offered God's blessings.
[2020-07-30 11:26] VITALS: BP 129/74; PULSE 100; TEMP 98.3
--- NOTE | 2020-07-30 13:00 | NUR ---
PATIENTS JUAREZ CATHETER DISCONTINUED PER DR. GAONA. 8 MLS OF STERILE WATER ASPIRATED FROM BALLOON. TIP INTACT. PATIENT REPORTS IMMEDIATE RELIEF AFTER REMOVING CATHETER. PATIENT EXPRESSES THAT SHE REALLY WANTS TO GET INTO THE SHOWER AND GET CLEANED UP.
[2020-07-30 13:44] LABS: CALCIUM 7.3 mg/dL (8.4-10.2); CREATININE, serum 3.95 (0.52-1.25)
--- NOTE | 2020-07-30 15:17 | NUR ---
CT ARRIVED TO TAKE PATIENT DOWN FOR SCAN. WILL WAIT FOR ARRIVAL BACK TO ROOM 348.
--- NOTE | 2020-07-30 15:41 | NUR ---
PATIENT ARRIVED BACK TO ROOM [address] SCAN.
[2020-07-30 16:23] LABS: CALCIUM 7.5 mg/dL (8.4-10.2); CREATININE, serum 3.88 (0.52-1.25)
--- NOTE | 2020-07-30 19:07 | NUR ---
PATIENT PROVIDED WITH PAIN MEDICATIONS NEEDED THROUGHOUT THE SHIFT. PATIENT REPORTS THAT HER PAIN IS SIGNIFICANTLY BETTER WITH HAVING THE JUAREZ REMOVED THIS AFTERNOON. PATIENT ASSISTED WITH CLEANING HER PERINEAL AREA NEEDED. WILL REPORT OFF TO ONCOMING NURSE.
[2020-07-30 19:21] VITALS: BP 138/82; PULSE 57; TEMP 98.2
[2020-07-30 20:23] LABS: CALCIUM 7.2 mg/dL (8.4-10.2); CREATININE, serum 3.6 (0.52-1.25); POTASSIUM 4.1 mmol/L (3.4-5.0)
[2020-07-30 22:28] LABS: IRON,SERUM 31 ug/dL (35-150)
[2020-07-30 22:37] LABS: TOTAL IRON BINDING CAPACITY 166 ug/dL (265-497)
[2020-07-30 23:34] VITALS: BP 117/74; PULSE 102; TEMP 98.1
[2020-07-31 04:43] VITALS: BP 116/79; PULSE 94; TEMP 97.3
[2020-07-31 07:45] VITALS: BP 122/76; PULSE 109; TEMP 98.4
--- NOTE | 2020-07-31 08:37 | NUR ---
On 07/30 this Gamemaster met with the patient to complete initial intake. The patient lives in [place] with her 19 year-old son and 10-year old daughter. The patient also has family support from her mother, Rosa Isela #[phone] and aunt. She has cousins that assist as well. The patient denies DME use and is independent. The patient's PCP is Dr. Elmore and patient receives medicaitons from the [facility] in . The patient does not have advanced directives but she was interested in a form. Form provided. The pateint plans to return home with her family. Colleen and aunt will provide transporation. SW contacted the patient's mother to introduce oneself and to review the discharge plan. She was in agreeance and will provide transporation. There are additional needs at this time.
--- NOTE | 2020-07-31 12:00 | NUR ---
Patient alert and oriented, answers questions appropriately. See assessment. Groin excoriated, no drainage noted. Patient has had several uncontrolled loose bowel movements this morning. Has been to the shower after each bowel movement. Uses aquafor and diaper rash cream to groin as needed. No c/o at this time.
[2020-07-31 12:14] LABS: MEAN CELL VOLUME 89 fl (80.0-100.0); MEAN CORPUSCULAR HGB CONC 34 g/dl (33.0-37.0); MEAN PLATELET VOLUME 8.5 fl (7.4-10.4); PLATELET COUNT 405 K/mm3 (130-400); RED BLOOD COUNT 2.76 M/mm3 (4.10-5.30); REDCELL DISTRIBUTION WIDTH-CV 17.2 % (11.5-14.5)
[2020-07-31 12:26] LABS: CALCIUM 7.5 mg/dL (8.4-10.2); CREATININE, serum 2.08 (0.52-1.25); POTASSIUM 3.7 mmol/L (3.4-5.0)
[2020-07-31 12:35] LABS: HEMATOCRIT 24.5 % (37.0-47.0); HEMOGLOBIN 8.2 g/dl (12.5-16.0); MEAN CORPUSCULAR HEMOGLOBIN 30 pg (27.0-31.0)
[2020-07-31 13:10] VITALS: BP 120/77; PULSE 72; TEMP 98.1
[2020-07-31 16:28] VITALS: BP 145/98; PULSE 97; TEMP 97.3
[2020-07-31 18:32] VITALS: BP 116/80; PULSE 100; TEMP 97.5
[2020-07-31 23:55] VITALS: BP 119/81; PULSE 116; TEMP 97.7
[2020-08-01 04:12] VITALS: BP 137/76; PULSE 84; TEMP 97.8
--- NOTE | 2020-08-01 04:40 | NUR ---
Pt had her call light within reach. Pt stated that she is doing well at this time. She has had some loose stools but pt stated that he lomotil really helped her.
--- NOTE | 2020-08-01 06:23 | NUR ---
Pt has had a very good night. Pt has been independent in her room . She did take a shower during the night. I did notice that the pt did not sleep much during the shift. Pt has her call light [employer] reach and her bed is in lowest position.
[2020-08-01 08:15] VITALS: BP 100/78; PULSE 81; TEMP 97.8
--- NOTE | 2020-08-01 08:30 | NUR ---
Patient in bed resting. Alert and oriented x 3. Assessment copmlete. Denies pain at this time. Fluids infusing per orders to left chest port. Radiation lewis to groin noted. Edema to BLE +2. Denies further needs at this time.
[2020-08-01 08:39] LABS: MEAN CELL VOLUME 89 fl (80.0-100.0); MEAN CORPUSCULAR HGB CONC 34 g/dl (33.0-37.0); MEAN PLATELET VOLUME 8.9 fl (7.4-10.4); PLATELET COUNT 394 K/mm3 (130-400); RED BLOOD COUNT 2.54 M/mm3 (4.10-5.30); REDCELL DISTRIBUTION WIDTH-CV 17.2 % (11.5-14.5)
[2020-08-01 08:44] LABS: HEMATOCRIT 22.6 % (37.0-47.0); HEMOGLOBIN 7.6 g/dl (12.5-16.0); MEAN CORPUSCULAR HEMOGLOBIN 30 pg (27.0-31.0)
[2020-08-01 08:55] LABS: ALBUMIN 2.6 gm/dL (3.5-5.0); BILIRUBIN,TOTAL 0.2 mg/dL (0.0-1.0); CALCIUM 7.9 mg/dL (8.4-10.2); CREATININE, serum 1.2 (0.52-1.25); MAGNESIUM 1.4 mg/dL (1.6-2.3); PHOSPHOROUS 2.7 mg/dL (2.5-4.5); POTASSIUM 4.5 mmol/L (3.4-5.0); TOTAL PROTEIN 5.9 gm/dL (6.4-8.2)
[2020-08-01 11:49] VITALS: BP 130/71; PULSE 77; TEMP 97.5
[2020-08-01 16:35] VITALS: BP 122/83; PULSE 92; TEMP 97.7
--- NOTE | 2020-08-01 18:40 | NUR ---
Patient has done well throughout the day. Patient ambulates independently. Fluids continue infusing per orders. Patient states she has been having less diarrhea today. Denies further needs at this time. Will report off to behavioral scientist.
[2020-08-01 20:00] VITALS: BP 151/86; PULSE 95; TEMP 97.9
--- NOTE | 2020-08-01 21:02 | NUR ---
Pt currently sitting up in bed. Pt was on a phone call with family. Pt did state that she feels fine. Pt only request one juice and more things for her to have in case she needs a shower. Pt blood pressure reading was 151/86, pt did state that she has a lot going on at home and just feels she needs to rest. I will monitor pt blood pressure throughout the night. Pt has her call light within reach.
[2020-08-02] VITALS: BP 141/80; PULSE 75; TEMP 97.6
[2020-08-02 04:00] VITALS: BP 123/84; PULSE 104; TEMP 97.8
--- NOTE | 2020-08-02 05:00 | NUR ---
Pt has had a good night. I did notice that pt did not sleep all night. She stated that she is resting but she has not been sleepy. Pt has her call light and has not requested much at all during the night. During hourly rounds pt has been reading or on her phone. She was unhooked from her fluids for a short time until she took her shower. Pt has no other concerns at this time.
[2020-08-02 07:08] LABS: ALBUMIN 2.8 gm/dL (3.5-5.0); BILIRUBIN,TOTAL 0.2 mg/dL (0.0-1.0); CALCIUM 8.3 mg/dL (8.4-10.2); CREATININE, serum 1.03 (0.52-1.25); POTASSIUM 4.3 mmol/L (3.4-5.0); TOTAL PROTEIN 6.2 gm/dL (6.4-8.2)
--- NOTE | 2020-08-02 07:20 | NUR ---
Patient up ambulating in halls independently. Denies needs at this time.
[2020-08-02 07:21] LABS: MAGNESIUM 2.2 mg/dL (1.6-2.3)
[2020-08-02 07:57] LABS: MEAN CELL VOLUME 89 fl (80.0-100.0); MEAN CORPUSCULAR HGB CONC 33 g/dl (33.0-37.0); MEAN PLATELET VOLUME 8.4 fl (7.4-10.4); RED BLOOD COUNT 2.87 M/mm3 (4.10-5.30); REDCELL DISTRIBUTION WIDTH-CV 17.3 % (11.5-14.5)
[2020-08-02 07:59] LABS: HEMOGLOBIN 8.4 g/dl (12.5-16.0); MEAN CORPUSCULAR HEMOGLOBIN 29 pg (27.0-31.0)
[2020-08-02 08:00] LABS: HEMATOCRIT 25.5 % (37.0-47.0); PLATELET COUNT 509 K/mm3 (130-400)
[2020-08-02 08:02] VITALS: BP 122/74; PULSE 90; TEMP 97.7
[2020-08-02 08:43] LABS: BAND 7 % (0-10); LYMPHOCYTE 1 % (20.0-51.0); NEUTROPHILS 84 % (42.0-75.2); PLATELET ESTIMATE INCREASED (NORMAL)
[2020-08-02 08:44] LABS: ANISOCYTOSIS 1+; HYPOCHROMIA 1+
[2020-08-02 08:45] LABS: OVALOCYTES 1+; SCHISTOCYTES 1+; TEAR DROP CELLS 1+
[2020-08-02 08:46] LABS: POLYCHROMASIA 1+; SPHEROCYTE 1+
--- NOTE | 2020-08-02 09:56 | NUR ---
Follow-up visit; Patient thanked Dozer Operator for continuing to look in on her while she has been here and for offering encouragement and God's blessings.
[2020-08-02 11:35] VITALS: BP 130/79; PULSE 74; TEMP 97.5
[2020-08-02] MEDS ORDERED: NEURONTIN100 MG/CAP PO (12:30)
[2020-08-02] MEDS ORDERED: SODIUM BICARBO650 MG PO (12:31)
[2020-08-02] MEDS ORDERED: PREDNISONE10 MG PO (12:35)
--- NOTE | 2020-08-02 15:00 | NUR ---
Discharge education provided to patient. Patient educated on when to call provider and follow up appointments. Educated on increasing fluid intake and follow up labs. Port deaccessed per protocol, heparinized and cleaned with chlorahexadine pads x 2. Gauze and tegaderm dressing applied. All questions answered. Denies further needs at this time. Patient out by wheelchair with surgical staff and family.
== END 2020-08-02 15:00 | disposition home or self-care (01) | DRG 683 ==
LOC: COL.ER 15:29 → SURG 17:48
PROVIDERS: Emergency Medicine; Internal Medicine Nephrology; Physician Assistant; ADMIT Hospitalist
DX: N17.0 Acute kidney failure with tubular necrosis (principal); C20 Malignant neoplasm of rectum; E87.2 Acidosis; E87.1 Hypo-osmolality and hyponatremia; R65.10 Systemic inflammatory response syndrome (SIRS) of non-infectious origin without acute organ dysfunction; C18.7 Malignant neoplasm of sigmoid colon; E86.0 Dehydration; K52.9 Noninfective gastroenteritis and colitis, unspecified; D50.9 Iron deficiency anemia, unspecified; I10 Essential (primary) hypertension; E03.9 Hypothyroidism, unspecified; E83.42 Hypomagnesemia; E83.39 Other disorders of phosphorus metabolism; D47.3 Essential (hemorrhagic) thrombocythemia; G62.9 Polyneuropathy, unspecified; T45.1X5A Adverse effect of antineoplastic and immunosuppressive drugs, initial encounter; Z20.828 Contact with and (suspected) exposure to other viral communicable diseases; Z90.49 Acquired absence of other specified parts of digestive tract
CPT/HCPCS: 99223-AI; 99232-AI; 99233-AI; 99239; J0696; J1170; J1450; J2405; J2930; J3475; J7030; J7040; J7120

== ENCOUNTER 2020-09-08 23:12 | Emergency (ER) | payer BC ==
[~2020-09-08] VITALS: Ht 162.6 cm; Wt 61.4 kg
[~2020-09-08 23:12] MED LIST changes: +KLOR-CON 1010 MEQ PO; +NEURONTIN100 MG/CAP PO; +SODIUM BICARBO650 MG PO
[2020-09-08 23:32] VITALS: TEMP 98.1
[2020-09-08 23:58] LABS: BASO # 0.1 (0.0-0.2); BASO % 0.6 % (0.0-2.0); EOS % 0.2 % (0-4.0); GRAN # 6.7 (1.4-6.5); GRAN % 80.7 % (42.2-75.2); HEMATOCRIT 39.6 % (37.0-47.0); LYMPH # 0.8 (1.2-3.4); LYMPH % 9.1 % (20.0-51.0); MEAN CELL VOLUME 87 fl (80.0-100.0); MEAN CORPUSCULAR HEMOGLOBIN 28 pg (27.0-31.0); MEAN CORPUSCULAR HGB CONC 33 g/dl (33.0-37.0); MEAN PLATELET VOLUME 8.7 fl (7.4-10.4); MONO # 0.7 (0.1-0.6); MONO % 8.9 % (1.7-9.3); PLATELET COUNT 667 K/mm3 (130-400); RED BLOOD COUNT 4.57 M/mm3 (4.10-5.30)
[2020-09-09 00:43] LABS: ALBUMIN 3.5 gm/dL (3.5-5.0); BILIRUBIN,TOTAL 0.4 mg/dL (0.0-1.0); CALCIUM 9.1 mg/dL (8.4-10.2); CREATININE, serum 1.86 (0.52-1.25); TOTAL PROTEIN 7.9 gm/dL (6.4-8.2)
[2020-09-09] MEDS ORDERED: ZOFRAN 4MG T4 MG/TAB PO (02:09)
[2020-09-09 02:11] VITALS: BP 144/100; PULSE 95
== END 2020-09-09 02:30 | disposition home or self-care (01) ==
LOC: COL.ER 23:12
PROVIDERS: Emergency Medicine
DX: E87.1 Hypo-osmolality and hyponatremia (principal); E86.0 Dehydration; R79.89 Other specified abnormal findings of blood chemistry; Z85.038 Personal history of other malignant neoplasm of large intestine; Z88.2 Allergy status to sulfonamides; Z79.52 Long term (current) use of systemic steroids
CPT/HCPCS: J2270; J2405; J7030

== ENCOUNTER 2020-09-12 16:26 | Inpatient (IN) | payer BC ==
[~2020-09-12] VITALS: Ht 162.6 cm; Wt 62.8 kg
[2020-09-12 17:05] LABS: BASO % 0.3 % (0.0-2.0); EOS % 0.5 % (0-4.0); GRAN # 6.5 (1.4-6.5); GRAN % 82.7 % (42.2-75.2); HEMATOCRIT 38.7 % (37.0-47.0); HEMOGLOBIN 13.3 g/dl (12.5-16.0); LYMPH # 0.6 (1.2-3.4); LYMPH % 7.6 % (20.0-51.0); MEAN CELL VOLUME 85 fl (80.0-100.0); MEAN CORPUSCULAR HEMOGLOBIN 29 pg (27.0-31.0); MEAN CORPUSCULAR HGB CONC 34 g/dl (33.0-37.0); MEAN PLATELET VOLUME 9.1 fl (7.4-10.4); MONO # 0.7 (0.1-0.6); MONO % 8.5 % (1.7-9.3); PLATELET COUNT 722 K/mm3 (130-400); RED BLOOD COUNT 4.55 M/mm3 (4.10-5.30); REDCELL DISTRIBUTION WIDTH-CV 14.9 % (11.5-14.5)
[2020-09-12 17:45] LABS: ALBUMIN 3.4 gm/dL (3.5-5.0); BILIRUBIN,TOTAL 0.5 mg/dL (0.0-1.0); CALCIUM 9.1 mg/dL (8.4-10.2); CREATININE, serum 1.73 (0.52-1.25); POTASSIUM 3.8 mmol/L (3.4-5.0); TOTAL PROTEIN 7.7 gm/dL (6.4-8.2)
[2020-09-12 18:37] LABS: COLLECTION METHOD CLEAN CATCH
[2020-09-12 18:45] LABS: AMORPHOUS CRYSTAL Present /uL; MUCOUS Present /lpf; PH 6 (5-8); SQUAMOUS EPITHELIAL 0-2 /hpf; URINE APPEARANCE Hazy; URINE BACTERIA None Seen /hpf; URINE BILIRUBIN Negative (NEGATIVE); URINE BLOOD 1+ (NEGATIVE); URINE COLOR Yellow; URINE GLUCOSE Negative (NEGATIVE); URINE KETONE Negative (NEGATIVE); URINE LEUKOCYTE ESTERASE 1+ (NEGATIVE); URINE NITRATE Negative (NEGATIVE); URINE PROTEIN(semi-quant) 1+ (NEGATIVE); URINE UROBILINOGEN Negative (NEGATIVE)
--- NOTE | 2020-09-12 19:25 | NUR ---
RECEIVED REPORT FROM ED NURSESTEPHANIE. PATIENT ARRIVAL PENDING.
[2020-09-12] MEDS ORDERED: LASIX 20MG TABL20 MG PO (19:31)
--- NOTE | 2020-09-12 20:01 | NUR ---
PATIENT ARRIVED TO ROOM 330 VIA ED CART ACCOMPANIED BY ED PCT. PATIENT UP TO BATHROOM SBA.
[2020-09-12 20:07] VITALS: BP 128/83; PULSE 97; TEMP 97.7
[2020-09-12 20:27] LABS: MAGNESIUM 1.5 mg/dL (1.6-2.3); PHOSPHOROUS 4.2 mg/dL (2.5-4.5)
[2020-09-13] VITALS (9 sets, daily range): BP systolic 115–128; BP diastolic 76–86; PULSE 73–95; TEMP 97.4–98.6
[2020-09-13 00:04] LABS: CREATININE, serum 1.36 (0.52-1.25)
[2020-09-13 00:45] LABS: CALCIUM 7.9 mg/dL (8.4-10.2); CREATININE, serum 1.38 (0.52-1.25)
--- NOTE | 2020-09-13 00:55 | NUR ---
PATIENT C/O OF UPPER ARM SHARP PAIN NEAR SHOULDER THAT RADIATES LATERALLY TO BACK OF R UPPER ARM THAT SUBSIDES WHEN IV INFUSION IS STOPPED BUT WHEN RESTARTS PATIENT WOULD RETURN, HEATING PAD APPLIED TO AREA THAT HELPED SOME BUT SHARP PAIN WOULD RETURN WHEN IV INFUSION IS RESUMED. PATIENT REQUESTING TO HAVE IV POTASSIUM STOPPED AND TAKE ORAL POTASSIUM INSTEAD.
[2020-09-13 01:16] LABS: TSH w REFLEX 0.61 uIU/mL (0.465-4.680)
--- NOTE | 2020-09-13 01:27 | NUR ---
ATTEMPTED TO CONTACT GALLITO MCDONALD REGARDING CRITICAL LAB, PROVIDER UNAVAILABLE AND WILL ATTEMPT TO CALL PROVIDER.
[2020-09-13 01:28] LABS: CLOSTRIDIUM DIFF A/B NEG; CLOSTRIDIUM DIFF A/B INTERP No C.diff present
--- NOTE | 2020-09-13 03:41 | NUR ---
PATIENT UNABLE TO TOLERATE IVF INFUSIONS OF NS OR POTASSIUM, GALLITO MCDONALD, INFORMED OF PATIENT INTOLERANCE TO IVF INFUSION, ALTERNATE IV SITE INSERTED PER LINK TRAINER, GOSIA COKER, TO L HAND, WITH PATIENT C/O PAIN WITH NEW IV SITE AFTER IVF RESTARTED. OBSERVED IV SITE CLEAR OF REDNESS/SWELLING/TEMP CHANGES/SKIN COLOR CHANGES. IVF STOPPED, IV PAIN MED GIVEN THAT PATIENT REPORTED HAD HELP BUT STILL C/O PAIN AFTER IVF RESUMED. PATIENT AGREED TO HAVE INFUSAPORT ACCESSED, SITE ACCESSED PER LINK TRAINER/GOSIA COKER PER HOSP P/P, WITH NO BLOOD RETURN OBSERVED. PATIENT REPORTED THAT ONCOLOGY NURSES/OFFICE HAVING TO USE "CLOT BUSTER" DUE TO PROBLEMS WITH PORT ONCE ACCESSED AND NO BLOOD RETURN OBSERVED. PROVIDER, GALLITO MCDONALD INFORMED OF INFUSAPORT ACCESSED WITH NO BLOOD RETURN OBSERVED, NO ORDERS GIVEN, ABAD NEEDLE REMOVED PER HOSP P/P. ORDERS FOR ATIVAN ENTERED BY PROVIDER INORDER FOR PATIENT TO TOLERATE IVF RESTARTING.
[2020-09-13 07:06] LABS: MEAN CELL VOLUME 86 fl (80.0-100.0); MEAN CORPUSCULAR HGB CONC 33 g/dl (33.0-37.0); MEAN PLATELET VOLUME 9.2 fl (7.4-10.4); RED BLOOD COUNT 3.49 M/mm3 (4.10-5.30); REDCELL DISTRIBUTION WIDTH-CV 15.1 % (11.5-14.5)
[2020-09-13 07:16] LABS: CALCIUM 7.9 mg/dL (8.4-10.2); CREATININE, serum 1.43 (0.52-1.25); POTASSIUM 4.3 mmol/L (3.4-5.0)
[2020-09-13 07:23] LABS: MEAN CORPUSCULAR HEMOGLOBIN 29 pg (27.0-31.0)
[2020-09-13 07:24] LABS: HEMATOCRIT 30.1 % (37.0-47.0); PLATELET COUNT 510 K/mm3 (130-400)
--- NOTE | 2020-09-13 07:31 | NUR ---
CHANGE OF SHIFT REPORT GIVEN TO DAY SHIFT NURSEKAREL
--- NOTE | 2020-09-13 07:43 | NUR ---
CALLED AND NOTIFIED OF CRITICAL CO2 RESULT OF 14. NO ORDERS GIVEN AT THIS TIME. DOCTOR TO SEE DURING ROUNDING.
[2020-09-13 08:26] LABS: BAND 19 % (0-10); LYMPHOCYTE 2 % (20.0-51.0); NEUTROPHILS 78 % (42.0-75.2)
[2020-09-13 08:27] LABS: PLATELET ESTIMATE INCREASED (NORMAL)
--- NOTE | 2020-09-13 11:52 | NUR ---
SW met with patient to complete intake. Patient states that she lives in with with her two children. Patient provides that she does not have a DPOA-HC. She states that she has the document at home and will get it completed soon. Patient provides that she does not utilize any DME at this time, and is independent with ADL's. Patient states her PCP is Dr. Elmore, pharmacy is the [email or web address] in , and states that she is able to afford her medications at this time. Patient states that she does not utilize home health services at this time and plans to go back to her home upon DC. SW will continue to follow.
[2020-09-13 12:55] LABS: CREATININE, serum 1.43 (0.52-1.25); POTASSIUM 3.5 mmol/L (3.4-5.0)
--- NOTE | 2020-09-13 13:05 | NUR ---
TAMARA LARIOS CALLED AND NOTIFIED OF CRITICAL CO2 RESULT OF 12. NO ORDERS GIVEN AT THIS TIME.
[2020-09-13 18:10] LABS: CALCIUM 7.8 mg/dL (8.4-10.2); CREATININE, serum 1.34 (0.52-1.25); POTASSIUM 3.8 mmol/L (3.4-5.0)
--- NOTE | 2020-09-13 18:33 | NUR ---
CRITICAL CO2 RESULT OF 14 CALLED TO TAMARA GORDON. NO ORDERS GIVEN AT THIS TIME.
--- NOTE | 2020-09-13 19:05 | NUR ---
PATIENT HAS HAD AN UNEVENTFUL DAY. PATIENT HAS DENIED PAIN THROUGHOUT THE SHIFT. PATIENT REPORTS THAT SHE WAS ABLE TO TOLERATE AND EAT ALL OF HER DINNER WITHOUT ANY DIFFICULTIES. PATIENT STATES THAT SHE FEELS MUCH BETTER AFTER EATING FOOD. PATIENT STATES THAT THE DIARRHEA IS A BIT BETTER THIS AFTERNOON. PATIENT RESTING IN BED. CALL LIGHT IN REACH. WILL REPORT OFF TO ONCOMING NURSE.
--- NOTE | 2020-09-13 19:08 | NUR ---
CHANGE OF SHIFT REPORT RECEIVED FROM DAY SHIFT NURSE. PATIENT RESTING IN BED WITH NO CURRENT NEEDS OR CONCERNS REPORTED.
--- NOTE | 2020-09-13 23:41 | NUR ---
REPORTS NOT STOOLING WITH EACH VOID, HAD X2 VOIDS WITH NO STOOLS PASSED. REPORTS STOOL ARE "MUSHY" COMPARED TO LAST NIGHT.
[2020-09-14 00:52] LABS: CALCIUM 7.8 mg/dL (8.4-10.2); CREATININE, serum 1.3 (0.52-1.25); POTASSIUM 3.6 mmol/L (3.4-5.0)
[2020-09-14 04:01] VITALS: BP 122/77; PULSE 72; TEMP 97.8
[2020-09-14 06:17] LABS: CALCIUM 7.7 mg/dL (8.4-10.2); CREATININE, serum 1.19 (0.52-1.25)
--- NOTE | 2020-09-14 07:22 | NUR ---
PT VERY DROWSY AT BEDSIDE SHIFT REPORT. HARD TO AROUSE TO TAKE PILLS FOR OPTICS ENGINEER NURSE. PT UP UNTIL AROUND 0300 LAST NIGHT AND FINALLY SLEEPING. AIRPOD CAME OUT OF PT EAR, SET IN PT GLASSES CASE SO IT WOULDNT BE LOST.
--- NOTE | 2020-09-14 07:30 | NUR ---
CHANGE OF SHIFT REPORT GIVEN TO DAY SHIFT NURSE.
[2020-09-14 08:44] VITALS: BP 115/75; PULSE 73; TEMP 98.4
[2020-09-14 09:00] LABS: CREATININE, serum 1.19 (0.52-1.25); POTASSIUM 3.6 mmol/L (3.4-5.0)
--- NOTE | 2020-09-14 11:01 | NUR ---
First visit from the biomass plant manager. prayed with patient. No other needs right now.
[2020-09-14 12:50] VITALS: BP 134/80; PULSE 107; TEMP 98.4
[2020-09-14 15:49] VITALS: BP 123/78; PULSE 74; TEMP 98.1
--- NOTE | 2020-09-14 15:50 | NUR ---
PT DENIED PAIN TODAY, WAS TAKEN OFF TELE AND FINISHING LAST BAG OF NS. PT TOLD SHE CAN DISCHARGE TOMORROW MORNING. PT IND IN ROOM AND PLEASANT. PT DENIED ASSITANCE OR NEEDS WHEN THIS DID LAST ROUNDS.
[2020-09-14 18:29] LABS: CALCIUM 7.8 mg/dL (8.4-10.2); CREATININE, serum 1.23 (0.52-1.25); POTASSIUM 3.9 mmol/L (3.4-5.0)
[2020-09-14 19:49] VITALS: BP 127/89; PULSE 84; TEMP 97.7
--- NOTE | 2020-09-14 19:51 | NUR ---
RECEIVED CHANGE OF SHIFT REPORT FROM DAY SHIFT NURSE.
--- NOTE | 2020-09-14 20:00 | NUR ---
PATIENT UP INDEPENDENTLY IN ROOM WITH NO CURRENT CONCERNS OR C/O REPORTED TO STAFF. REPORTS OBSERVED THAT HER STOOLS ARE SOMEWHAT "MUSHY" BUT LOOSE. DENIES PAIN, AND HAS CHRONIC NEUROPATHY THAT IS WORSE WHEN EXTREMITIES ARE EXPOSED TO COLD TEMPERATURES.
[2020-09-15 00:50] VITALS: BP 133/82; PULSE 72; TEMP 97.2
--- NOTE | 2020-09-15 01:23 | NUR ---
PATIENT OBTAINED SNACKS FROM VENDING MACHINE W/REMINDER TO EAT SMALL AMOUNTS OF SNACKS THAT PATIENT VERBALIZED UNDERSTANDING. NO FURTHER NEEDS REPORTED. PATIENT ACCOMPANIED OFF UNIT VIA W/C W/RN.
[2020-09-15 05:47] VITALS: BP 112/69; PULSE 73; TEMP 97.8
--- NOTE | 2020-09-15 06:57 | NUR ---
CHANGE OF SHIFT REPORT GIVEN TO DAY SHIFT NURSEMELY.
[2020-09-15 07:06] LABS: MEAN CELL VOLUME 90 fl (80.0-100.0); MEAN CORPUSCULAR HGB CONC 32 g/dl (33.0-37.0); PLATELET COUNT 494 K/mm3 (130-400); RED BLOOD COUNT 3.39 M/mm3 (4.10-5.30); REDCELL DISTRIBUTION WIDTH-CV 16.2 % (11.5-14.5)
[2020-09-15 07:07] LABS: CALCIUM 8.5 mg/dL (8.4-10.2); CREATININE, serum 1.16 (0.52-1.25); POTASSIUM 3.6 mmol/L (3.4-5.0)
[2020-09-15 07:12] LABS: HEMATOCRIT 30.6 % (37.0-47.0); HEMOGLOBIN 9.9 g/dl (12.5-16.0); MEAN CORPUSCULAR HEMOGLOBIN 29 pg (27.0-31.0)
[2020-09-15 08:03] VITALS: BP 113/66; PULSE 77; TEMP 98.7
--- NOTE | 2020-09-15 08:56 | NUR ---
Patient upset this am. Incontinent stool. Patient to shower, assisted with hygiene. She is very frustrated and tearful. She tolerated breafast without nausea, denies nausea Warm blankets for comfort. Int to hand for medications. Will monitor.
[2020-09-15 11:02] VITALS: BP 123/75; PULSE 77; TEMP 98.3
[2020-09-15] MEDS ORDERED: PROTONIX 40MG T40 MG PO (11:31)
[2020-09-15] MEDS ORDERED: PREDNISONE50 MG PO (11:32)
--- NOTE | 2020-09-15 14:13 | NUR ---
Radha ready for discharge, her son to take her home. Patient given all discharge instructions. She is to call her PCP & Gi doctors tmrw for follow up appts. Patient aware of new presctiptions at pharmacy of choice she has taken medications before & denies questions or concerns. Patient INT dc. She toelrated lunch, but does continue to have loose stools. Radha overall feeling, better and thankful to be going home where she will be more comfortable.
== END 2020-09-15 14:15 | disposition home or self-care (01) | DRG 386 ==
LOC: COL.ER 16:26 → JCC 17:49
PROVIDERS: Family Medicine; Nurse Practitioner Family; ADMIT Internal Medicine
DX: K51.90 Ulcerative colitis, unspecified, without complications (principal); N17.9 Acute kidney failure, unspecified; E87.2 Acidosis; C19 Malignant neoplasm of rectosigmoid junction; E87.1 Hypo-osmolality and hyponatremia; N39.0 Urinary tract infection, site not specified; I10 Essential (primary) hypertension; E03.9 Hypothyroidism, unspecified; E87.6 Hypokalemia; G62.9 Polyneuropathy, unspecified; Z88.2 Allergy status to sulfonamides; E86.0 Dehydration; D47.3 Essential (hemorrhagic) thrombocythemia; D64.9 Anemia, unspecified; E83.42 Hypomagnesemia; R63.4 Abnormal weight loss; Z68.21 Body mass index [BMI] 21.0-21.9, adult
CPT/HCPCS: 99223-AI; 99232-AI; 99233-AI; C9113; J0696; J1170; J2060; J2405; J2550; J2930; J3475; J3480; J7030; J7120

== ENCOUNTER 2021-09-02 14:15 | Outpatient (RCR) | payer BC ==
[~2021-09-02 14:15] MED LIST changes: +PREDNISONE50 MG PO; +PROTONIX 40MG T40 MG PO
== END 2021-09-12 | disposition home or self-care (01) ==
LOC: WSPT
DX: I89.0 Lymphedema, not elsewhere classified (principal)

== ENCOUNTER 2021-10-30 15:45 | Outpatient (RCR) | payer BC | END 2021-11-10 | disposition home or self-care (01) | LOC: WSPT | DX: I89.0 Lymphedema, not elsewhere classified (principal) ==

== ENCOUNTER 2021-11-26 13:13 | Outpatient (RCR) | payer BC | END 2021-11-26 13:16 | disposition home or self-care (01) | LOC: WSPT 13:13 | DX: I89.0 Lymphedema, not elsewhere classified (principal) ==

== ENCOUNTER 2021-12-22 13:08 | Day surgery (SDC) | payer BC ==
[2021-12-22] VITALS (9 sets, daily range): BP systolic 110–144; BP diastolic 69–88; PULSE 68–109; TEMP 97.9–98.9
[~2021-12-22] VITALS: Ht 162.6 cm; Wt 112.5 kg
--- NOTE | 2021-12-22 13:20 | NUR ---
46 Year old female admitted [place] [facility] via ambulation, no assistive devices used. Height and weight obtained. Medications and HX reviewed. Vitals obtained. Pt states she has a L port and a illeostomy, with a band present. Allergies reviewed. Procedure verified and consent signed. First and last name + verified with pt, who verbalized understanding the procedure. Pt used the bathroom before changing into a clean gown. Port accessed on first attempt by SHEELA Carrasco with 1.5IN per protocol. Blood return obtained. IVF scanned and are infusing without difficulty. Physical assessment completed. Warm blankets provided. Non-slip socks are on. Side rails x1. Call tripp is within reach on the side table.
[2021-12-22] MEDS ORDERED: EUTHYROX125 MCG PO (13:51)
[2021-12-22] MEDS ORDERED: KLOR-CON SPRIN10 MEQ PO (13:52)
[2021-12-22] MEDS ORDERED: NEURONTIN600 MG/TAB PO (13:52)
[2021-12-22] MEDS ORDERED: VITAMIN D 50,1.25 MG PO (13:53)
[2021-12-22] MEDS ORDERED: FERRO-TIME325 MG PO (13:54)
[2021-12-22] MEDS ORDERED: SINGULAIR 110 MG/TAB PO (13:54)
[2021-12-22] MEDS ORDERED: LASIX 20MG TABL20 MG PO (13:54)
[2021-12-22] MEDS ORDERED: CYMBALTA 30MG30 MG PO (13:55)
[2021-12-22] MEDS ORDERED: FASTIN30 MG PO (13:55)
[2021-12-22] MEDS ORDERED: VITAMIN C500 MG PO (13:55)
[2021-12-22] MEDS ORDERED: MELATONIN3 M1 PO (13:56)
[2021-12-22] MEDS ORDERED: BACTROBAN15 GM TOP (13:56)
[2021-12-22] MEDS ORDERED: DIFLUCAN150 MG PO (13:56)
[2021-12-22] MEDS ORDERED: NATURE'S BLE1000 MCG PO (13:57)
[2021-12-22] MEDS ORDERED: CRANBERRY500 M3 PO (13:57)
[2021-12-22] MEDS ORDERED: APPLE CIDER VINEGAR PO (13:58)
--- NOTE | 2021-12-22 16:15 | NUR ---
PATIENT ADMITED INTO ROOM 323 POST OP. A&O. VSS. DENIES PAIN OR NAUSEA AT THIS TIME. JUAREZ TO DD WITH CBI INFUSING SLOW. URINE IS CLEAR YELLOW. ORDERS TO INFUSE CBI FOR SEVERAL HOURS THEN, DC JUAREZ. IF PATIENT VOIDS WITHOUT CONCERNS LATER TONIGHT SHE SHOULD DISCHARGE BACK TO HOME. ILEOSTOMY TO RIGHT ABD IS CD&I WITH BAG & WAFER. IV FLUIDS INFUSING INTO LEFT CHEST PORT. HEAD TO TOE ASSESSMENT COMPLETE. ORIENTED TO ROOM. NO FAMILY AT BEDSIDE AT THIS TIME. CALL LIGHT IN REACH. LIQUIDS AT BEDSIDE.
--- NOTE | 2021-12-22 22:31 | NUR ---
Pt has met discharge criteria, able to urinate without her robertson, straw colored urine, and able to ambulate independently. Robertson was removed without difficulty and left chest port was also discontinued without diffculty. Patient walked off of the floor and out of the facility with this nurse. Patient had no complaints and thanked this nurse and facility for her care.
== END 2021-12-22 22:20 | disposition home or self-care (01) ==
LOC: SDCO 13:08 → SURG 16:15 → SDCO 17:00
DX: N30.01 Acute cystitis with hematuria (principal); N30.21 Other chronic cystitis with hematuria; N32.89 Other specified disorders of bladder; Z85.038 Personal history of other malignant neoplasm of large intestine; Z92.21 Personal history of antineoplastic chemotherapy
CPT/HCPCS: OP; J0690; J1100; J2405; J2704; J3010; J7120; Q9967